=== PATIENT | male | born 1965 | race Caucasian/White ===

== ENCOUNTER 2018-05-08 22:46 | Emergency (ER) | payer BC, OTHER ==
[~2018-05-08] VITALS: Ht 165.1 cm; Wt 67.0 kg
[~2018-05-08 22:46] MED LIST: IBUP-1050 PO; MULT-506 PO
[2018-05-08 22:48] VITALS: TEMP 36.4; Ht 165.1 cm; Wt 67.0 kg
[2018-05-08] MEDS ORDERED: MoRPHine SULFATE 10 MG/ML CARP/VIAL IV STA (22:58)
[2018-05-08] MEDS ORDERED: LIDOCAINE 1% BUFFERED INJ 20 ML VIAL INFIL ONE (23:00)
[2018-05-08] MEDS ORDERED: AMPICILLIN/SULBACTAM SOD INJ 3,000 MG in SODIUM CHLORIDE 0.9% 100ML 100 ML IV ONE (23:00)
[2018-05-08] MEDS ORDERED: DIPHTHERIA/TETANUS/PERTUSSIS 0.5 ML SYR/VIAL IM. ONE (23:00)
--- NOTE | 2018-05-08 23:06 | EMERGENCY ROOM VISIT NOTE ---
History Report prepared by [place]: Yon Dumont Under the Supervision of: Dr. Juliano Randall M.D. First contact with patient: 22:53 Chief Complaint: BITE Stated Complaint: DOG BITE History of Present Illness The patient is a 52 year old male who presents to the Emergency Room with complaints of constant right hand pain that occurred an hour ago after he was bit by a Bernese dog. Patient states there was "blood all over the place". He denies taking any medication for the pain. He denies a past medical history or taking regular medications. Patient does not know when his last tetanus shot was but believes he has not had one in the last 5 years. Patient denies any other injuries. 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 Patient is present with his fiance. Source of History: patient Onset: An hour ago Position: hand (right) Timing: constant Modifying Factors (Relieving): other (None) Note: Denies any other injuries. Review of Systems See HPI for pertinent positives & negatives. A total of 10 systems reviewed and were otherwise negative. Past Medical & Surgical Medical Problems: (1) Colostomy Family History FHx: diverticulitis Social History Smoking Status: Never Smoker Marital Status: Occupation Status: employed Current/Historical Medications Scheduled Amoxicillin & Pot Clavulanate (Augmentin 875-125 mg), 875 MG PO BID Scheduled PRN Ibuprofen (Advil), 200-600 MG PO Q4H PRN for Pain Oxycodone Immediate Rel Tab (Roxicodone Ir), 1-2 TAB PO Q4H PRN for Severe Pain Allergies Coded Allergies: Prednisone (Verified Allergy, Unknown, MAKES SICK TO STOMACH, 05/08/18) Physical Exam Vital Signs Date Time Temp Pulse Resp B/P (MAP) Pulse Ox O2 Delivery O2 Flow Rate FiO2 05/09/18 00:55 85 18 103/72 100 05/08/18 22:48 36.4 93 16 141/85 97 Room Air Physical Exam GENERAL: Patient is severely upset, crying, won't make eye contact, and screams on light palpation of right hand. EYES: No scleral icterus, unremarkable pupils. ENT: Excessive rhinorrhea, mucous membranes moist, no nasal congestion. NECK: No masses appreciated, no meningismus, trachea is midline. RESPIRATORY: No dyspnea. Clear to auscultation and equal bilaterally. No wheeze , no rhonchi. CARDIOVASCULAR: Regular rate and rhythm. No murmurs, rubs, gallops appreciated. GASTROINTESTINAL: Abdomen soft, nontender, no peritonitis. Bowel sounds positive. No masses appreciated. BACK: No midline tenderness, no CVA tenderness EXTREMITIES: Normal motion all extremities, no cyanosis, no edema. RIGHT HAND: 2cm laceration over the dorsal aspect of 5th right metacarpal, horizontal laceration deep to subcutaneous tissue but lacerating artery or tendon, neurovascularly intact, small abrasion just distal to this, small skin flap about 1cm to hypothernar eminence. NEUROLOGIC: Alert and oriented, no acute motor or sensory deficits, no focal weakness, cranial nerves grossly intact. SKIN: No rash, no jaundice, no diaphoresis. Medical Decision & Procedures ER Provider Diagnostic Interpretation: Radiology results and stated below per my review and radiologist interpretation: THREE VIEW HAND X-RAY: X-ray shows soft tissue edema over proximal 5th metacarpal with small chip fracture at base of fifth metacarpal, no dislocation or foreign body appreciated. Medications Administered Medications (Trade) Dose Ordered Sig/Tammie Route Start Time Stop Time Status Last Admin Dose Admin Morphine Sulfate (MoRPHine SULFATE INJ) 10 mg NOW STAT IV 05/08/18 22:58 05/08/18 23:00 DC 05/08/18 23:11 10 MG Diphtheria/ Pertussis/Tetanus Vacc (Adacel Inj) 0.5 ml ONCE ONCE IM. 05/08/18 23:00 05/08/18 23:01 DC 05/08/18 23:12 0.5 ML Ampicillin Sodium/ Sulbactam Sodium 3000 mg/Sodium Chloride 108 ml @ 200 mls/hr ONE ONCE IV 05/08/18 23:00 05/08/18 23:32 DC 05/08/18 23:22 200 MLS/HR Morphine Sulfate (MoRPHine SULFATE INJ) 6 mg NOW STAT IV 05/09/18 00:00 05/09/18 00:01 DC 05/09/18 00:07 6 MG Procedure Location: Top of right hand Total length: 2cm Complexity: Simple Verbal consent was obtained after the risks and benefits were explained, including but not limited to bleeding, scarring, infection, pain, and bone/joint /nerve damage. At this time, the risks of the procedure are less than the risks of NOT performing the procedure. A time out was taken and the correct patient and site identified. The skin was prepped with betadine. The target area was anesthetized with 2 ml of 1% lidocaine without epinephrine. Copious irrigation was performed using about 1L of saline and Betadine. The skin was re-prepped with betadine and a sterile field set. The wound was explored for foreign bodies and none found. Examination revealed no injury to deep structures such as tendons, bone, or significant blood vessels. Debridement was not performed. The wound edges were approximated using 3, 4-0 simple interrupted nylon sutures. Hemostasis and excellent approximation was achieved. Antibacterial ointment and a sterile dressing applied. Detailed wound care instructions and signs and symptoms of infection reviewed with the him. No complications and the patient tolerated the procedure well. ED Course 2253: The patient was evaluated in room C4. A complete history and physical exam was performed. 6: Patient is currently sleeping. He appears much improved. 0025: Reevaluated the patient. I had prolonged discussion with the patient. He is comfortable with discharge and agreeable to calling orthopedics on Thursday. I talked with the patient at length about symptoms that require return. I also discussed with him Augmentin and he is agreeable to trying it. Discussed results and discharge instructions. He verbalized understanding and agreement. The patient is ready for discharge. Medical Decision 52 yr old male with dog bite to right hand (dominant hand) arrives in severe distress. Clearly he is very upset beyond just the dog bite which after longer discussion with him seems much of this is due to fact he is worried he won't be able to get several projects around house finished. Imaging hand with fracture base 5th metacarpal. Continued venous bleeding from dorsal wound despite pressure thus 3 sutures placed with hemostasis. Feeling better after morphine. Discussed at length the high risk of infection and fact he MUST see ortho in 36 hours as planned and reviewed symptoms requiring immediately RTED. Given IV Unasyn here and will do outpatient Augmentin. Reviewed risks/restrictions of Oxy IR. Patient going home with significant other who also denies further questions. [place] Drug Monitoring Program Search Results: no issues identified Medication Reconcilliation Current Medication List: was personally reviewed by me Blood Pressure Screening Patient's blood pressure: Elevated blood pressure Blood pressure disposition: Elevated BP felt to be situational Consults Time Called: 10 Consulting Physician: Dr. Ackerman - [facility] – [place] Returned Call: 12 Discussed the patient's case. Dr. Ackerman recommends closing any bleeding wounds and sending the patient to Dr. Mullins's office on Thursday. Impression Primary Impression: Dog bite of right hand Additional Impressions: Fracture of metacarpal of right hand, open [id number] (DTP) vaccination Scribe Attestation The scribe's documentation has been prepared under my direction and personally reviewed by me in its entirety. I confirm that the note above accurately reflects all work, treatment, procedures, and medical decision making performed by me. Departure Information Dispostion Home / Self-Care Prescriptions Oxycodone Immediate Rel Tab (ROXICODONE IR) 5 Mg Tab 1-2 TAB PO Q4H Y for Severe Pain, #20 TAB Prov: Juliano Randall M.D. 05/09/18 Amoxicillin & Pot Clavulanate (Augmentin 875-125 mg) 1 Tab Tab 875 MG PO BID for 10 Days, #20 TAB Prov: Juliano Randall M.D. 05/09/18 Referrals Venkata Morales M.D. (PCP) Froylan Mullins MD Patient Instructions My [facility] Additional Instructions Keep arm elevated to level of heart when possible. Return if worsening pain, fevers, rash spreading up arm, discoloration of fingers, nausea/vomiting, or other concerning symptoms. Use Tylenol and Motrin for discomfort, and Oxy IR for stronger pain. You have received a narcotic pain medication prescription. These medications may cause drowsiness and should not be used with other sedative medications. Do not drive, drink alcohol, perform dangerous activities, nor make important decisions after taking these medications. shelter use or inappropriate use may lead to addiction. Call Ortho on Thursday to schedule an appointment. Do not eat anything Thursday morning in case you need to have surgery. We are always here to help if you feel you need further evaluation or treatment. Problem Qualifiers
[2018-05-09] MEDS ORDERED: MoRPHine SULFATE 10 MG/ML CARP/VIAL IV STA
[2018-05-09] MEDS ORDERED: OXYC-737 PO ×2 (00:37→13:29)
[2018-05-09] MEDS ORDERED: AMOX875T PO (00:37)
[2018-05-09] MEDS ORDERED: OXYCODONE IR HOME PACK PO ONE (00:45)
[2018-05-09] MEDS ORDERED: AMOXICIL/CLAVU 875MG HOME PACK PO ONE (00:45)
[2018-05-09 00:55] VITALS: BP 103/72; PULSE 85; O2SAT 100
--- NOTE | 2018-05-09 08:58 | DIAGNOSTIC IMAGING REPORT ---
R HAND MIN 3 VIEWS ROUTINE CLINICAL HISTORY: Right hand dog bite. COMPARISON: None FINDINGS: Note is made of an acute minimally displaced fracture within the base of the right fifth metacarpal. Irregularity of the distal right radius and ulna is chronic. No additional acute fractures are identified. Soft tissue swelling adjacent to the fracture is noted. IMPRESSION: Acute minimally displaced fracture within the base of the right fifth metacarpal with adjacent soft tissue swelling. Small amount of soft tissue gas. No radiopaque foreign body. Electronically signed by: Xiang Steiner M.D. 05/09/2018 8:56 AM Dictated Date/Time: 05/09/2018 8:32 AM
== END 2018-05-09 00:50 | disposition home or self-care (01) ==
LOC: C.EDB 22:47 → C.EDC 05-09 00:50
DX: S61.451A Open bite of right hand, initial encounter (principal); S62.316A Displaced fracture of base of fifth metacarpal bone, right hand, initial encounter for closed fracture; Z23 Encounter for immunization; W54.0XXA Bitten by dog, initial encounter; Z88.8 Allergy status to other drugs, medicaments and biological substances

== ENCOUNTER → 2018-05-12 | Outpatient (CLI) | payer BC ==
[~2018-05-12] MED LIST changes: +AMOX875T PO; -MULT-506 PO; +OXYC-737 PO
--- NOTE | 2018-05-12 10:51 | DIAGNOSTIC IMAGING REPORT ---
VENOUS DOPPLER UPR EXT UNIL CLINICAL HISTORY: 53 years-old Male presenting with RIGHT HAND PAIN and edema. TECHNIQUE: Real-time grayscale and color and spectral Doppler ultrasound imaging of the veins of the right upper extremity was performed. Compression and augmentation were also utilized. COMPARISON: None. FINDINGS: RIGHT: Internal jugular vein: Patent. Subclavian vein: Patent. Axillary vein: Patent. Brachial vein: Patent. Basilic vein (superficial): Patent. Cephalic vein (superficial): Patent. Radial vein: Patent. Ulnar vein: Patent. Other: At the site of clinical interest in the right hand, no fluid collection noted. Subcutaneous edema. IMPRESSION: No evidence of deep venous thrombosis. Electronically signed by: Robert Chua M.D. 05/12/2018 10:50 AM Dictated Date/Time: 05/12/2018 10:49 AM
== END | disposition home or self-care (01) ==
LOC: C.ULTRBC 10:14
DX: L03.119 Cellulitis of unspecified part of limb (principal)

== ENCOUNTER 2019-04-15 15:46 | Inpatient (IN) ==
--- OUTSIDE RECORDS SUMMARY | 2019-04-15 15:50 | External Medical Summary | Continuity of Care Document ---
:1965 Author Name Michell Jordan, Provider Address Unavailable Unavailable , Care Team Providers Name Role Phone [place] Jordan, Wolf Quiroz Unavailable [email or web address] PCP, UNKNOWN Unavailable Unavailable Problems Diverticulitis Of Colon With Abscess (562.11) Allergies and Adverse Reactions Allergy history not documented Medications Medications not documented Procedures Procedures not documented Immunizations Immunizations not documented Plan of Treatment Planned Observations Planned Goals not documented Results No Known Results Results not documented
[2019-04-15] MEDS ORDERED: LORazepam 1 MG/2 ML VIAL IV STA (15:52)
[2019-04-15] MEDS ORDERED: LORazepam 2 MG/4 ML VIAL ONE (15:53)
[2019-04-15 16:02] LABS: Basophils # (auto) 0.03 K/uL (0-0.2); Basophils % (auto) 0.4 %; Eosinophils # (auto) 0.13 K/uL (0-0.5); Eosinophils % (auto) 1.9 %; Hematocrit (blood only) 40.7 % (42-52); Hemoglobin 13.9 g/dL (14.0-18.0); Immature Granulocytes # (auto) 0.01 K/uL (0.00-0.02); Immature Granulocytes % (auto) 0.1 %; Lymphocytes # (auto) 1.85 K/uL (1.2-3.4); Lymphocytes % (auto) 26.4 %; Mean Corpuscular Hgb Conc 34.2 g/dL (32-36); Mean Corpuscular Volume 91.3 fL (80-100); Monocytes # (auto) 0.44 K/uL (0.11-0.59); Monocytes % (auto) 6.3 %; Neutrophils # (auto) 4.56 K/uL (1.4-6.5); Neutrophils % (auto) 64.9 %; Platelet Count 207 K/uL (130-400); RDW Coefficient of Variation 13.8 % (11.5-14.5); RDW Standard Deviation 45.9 fL (36.4-46.3); Red Blood Count 4.46 M/uL (4.7-6.1); White Blood Count 7.02 K/uL (4.8-10.8)
[2019-04-15] MEDS ORDERED: ASPIRIN CHEW 324 MG PO STA (16:04)
[2019-04-15] MEDS ORDERED: LIDOCAINE IV BOLUS & DRIP IV STA (16:07)
[2019-04-15] MEDS ORDERED: LIDOCAINE/D5W DRIP 4MG/ML 2,000 MG/500 ML BAG IV STA (16:07)
--- NOTE | 2019-04-15 16:09 | XRay Report ---
XR chest 1V portable CLINICAL HISTORY: Atypical chest pain COMPARISON STUDY: 04/17/2011 FINDINGS: The lower central chest is obscured due to overlying electrode pads. The heart is normal in size given the AP technique. There is no failure. There is no focal pulmonary consolidation. There a re no pleural effusions. There is no pneumothorax.[ IMPRESSION: No active disease in the chest. Electronically signed by: Fransisco Villaseñor M.D. 04/15/2019 4:08 PM
[2019-04-15 16:12] LABS: INR 1.1 (0.9-1.1); Prothrombin Time 11.1 Seconds (9.0-12.0)
[2019-04-15 16:25] LABS: iSTAT Hemoglobin 13.3 g/dl (14.0-18.0); iSTAT Ionized Calcium 1.1 mmol/l (1.12-1.32)
[2019-04-15 16:33] LABS: Alanine Aminotransferase 85 U/L (12-78); Albumin Level 3.5 gm/dl (3.4-5.0); Aspartate Aminotransferase 60 U/L (15-37); Bilirubin Direct 0.2 mg/dl (0-0.2); Blood Urea Nitrogen 24 mg/dl (7-18); Calcium 8.2 mg/dl (8.5-10.1); Carbon Dioxide 23 mmol/L (21-32); Chloride 110 mmol/L (98-107); Creatinine Clr Calc Pharmacy 86.6 ml/min; Est GFR (African American) 112.6; Est GFR (Non-African American) 97.2; Glucose 90 mg/dl (70-99); Potassium 4.5 mmol/L (3.5-5.1); Sodium 139 mmol/L (136-145)
[2019-04-15 16:37] LABS: Base Excess VBG -3.5 mEq/L; Oxygen Saturation VBG 63.2 %; pH VBG 7.32 (7.36-7.41)
[2019-04-15 16:45] LABS: Albumin Globulin Ratio 0.9 (0.9-2); Alkaline Phosphatase 112 U/L (45-117); Bilirubin,Total 0.5 mg/dl (0.2-1); Globulin 3.8 gm/dl (2.5-4.0); NT Pro B Type Natriuretic Pept 3127 pg/ml (0-900); Phosphorus 3.6 mg/dl (2.5-4.9); Total Protein 7.3 gm/dl (6.4-8.2); Troponin I < 0.015 ng/ml (0-0.045)
[2019-04-15 16:54] LABS: Appearance Urine Clear (Clear); Bacteria Urine Automated Negative (Negative); Bilirubin Urine Negative (Negative); Color Urine Dark Yellow; Glucose Urine UA Negative (Negative); Ketones Urine Trace (Negative); Leukocyte Esterase Urine Negative (Negative); Nitrite Urine Negative (Negative); Protein Urine 2+ (Negative); Specific Gravity Urine 1.027 (1.000-1.030); Urobilinogen Urine Negative (Negative)
[2019-04-15 17:15] LABS: Amphetamines+Metham, Urine Pos (Neg); Barbiturates, Urine Neg (Neg); Benzodiazepine, Urine Neg (Neg); Cocaine, Urine Neg (Neg); MDMA (Ecstacy), Urine Pos (Neg); Methadone, Urine Neg (Neg); Opiate, Urine Neg (Neg); Phencyclidine, Urine Neg (Neg)
[2019-04-15] MEDS ORDERED: OPTIRAY 320 125ml IV PRN (17:17)
--- NOTE | 2019-04-15 17:20 | Emergency Department Note ---
Entered by Domingo Lynn acting as a scribe for History of Present Illness General Chief complaint: Tachycardia Stated complaint: PALPITATIONS Time Seen by Provider: 04/15/19 15:48 Source: patient and EMS History of Present Illness Provider complaint: Palpitations Onset (ago): hour(s) (Past 24 hours) Location: chest Radiation: non-radiation Pain Consistency: + constant Relieved By: + none Exacerbated By: + none Associated symptoms: + shortness of breath and + other (Positive lower extremity edema); no chest pain The patient is a 53 year old male who presents to the Emergency Room via EMS with complaints of constant palpitations that started yesterday while he was weed whacking. En route, the patient was showing V-tach and sinus tach on the monitor so he received 150mg of Lidocaine. Per EMS, the patient has had shortness of breath with exertion and lower extremity swelling for the past month. Today, the patient is short of breath with the palpitations, but he notes it is not as worse now than it was when his symptoms initially onset. He also denies any chest pain. Per EMS, the patient admitted to using meth 2 days ago, but denies using any today. The patient also denies using any alcohol or tobacco. The patient is a milk pickup truck driver, but notes he has not had a long trip since July 2018. The patient denies any cardiac history and notes he sees a doctor every 2 years. Home Medications Home Medications Medication Instructions Recorded Confirmed Type No Known Home Medications 04/15/19 04/15/19 History Allergies Allergy/AdvReac Type Severity Reaction Status Date / Time prednisone Allergy Unknown MAKES SICK Verified 04/15/19 16:40 TO STOMACH Past Med/Surg History Medical History Methamphetamine abuse (Chronic) Diverticulitis (Resolved) Surgical History S/P colon resection (Chronic) Family History Other Heart disease Social History Preferred Language: Tam[place] Communication Ability: Effective Beliefs That Will Affect Care: None Current Living Situation: Alone Feels Safe at Home: Yes Safety Concerns: Feels Safe At This Time Smoking Status: Former smoker Tobacco Type: smokeless tobacco Do You Dip or Chew Tobacco: Yes Tobacco Cessation Education Requested by Patient: No Hx Alcohol Use: No Hx Substance Use: No Review of Systems See HPI for pertinent positives & negatives. and A total of 10 systems reviewed and were otherwise negative Physical Exam Vital Signs Vital Signs - 24 hr 04/15/19 15:50 04/15/19 15:52 04/15/19 15:58 Temperature 37.2 C Temperature Source Oral Sepsis Recent Fever Within 48 Hours No Sepsis New/Unexplained Change in Mental Status No Sepsis Action Taken by Nursing No Action Required Pulse Rate 104 H 99 H Pulse Rate [Left Finger] 107 H Pulse Rhythm Regular Respiratory Rate 20 21 20 Respiratory Effort / Characteristics Non-Labored Spontaneous Respiratory Depth Normal Respiratory Pattern Regular Blood Pressure 160/123 H Blood Pressure [Left Arm] 160/123 H Blood Pressure Mean 135 Blood Pressure Mean [Left Arm] 135 Pulse Oximetry 100 99 99 Oxygen Delivery Method Nasal Cannula Room Air Room Air Oxygen Flow Rate 2 04/15/19 16:10 04/15/19 16:25 04/15/19 16:38 Temperature Temperature Source Sepsis Recent Fever Within 48 Hours Sepsis New/Unexplained Change in Mental Status Sepsis Action Taken by Nursing Pulse Rate Pulse Rate [Left Finger] 94 H 95 H 93 H Pulse Rhythm Respiratory Rate 20 24 20 Respiratory Effort / Characteristics Respiratory Depth Respiratory Pattern Blood Pressure Blood Pressure [Left Arm] 142/107 H 140/103 H 132/99 Blood Pressure Mean Blood Pressure Mean [Left Arm] 118 115 110 Pulse Oximetry 100 100 100 Oxygen Delivery Method Nasal Cannula Nasal Cannula Nasal Cannula Oxygen Flow Rate 2 2 04/15/19 17:01 04/15/19 17:22 04/15/19 17:43 Temperature Temperature Source Sepsis Recent Fever Within 48 Hours Sepsis New/Unexplained Change in Mental Status Sepsis Action Taken by Nursing Pulse Rate Pulse Rate [Left Finger] 85 85 83 Pulse Rhythm Respiratory Rate 20 16 16 Respiratory Effort / Characteristics Respiratory Depth Respiratory Pattern Blood Pressure Blood Pressure [Left Arm] 130/76 135/83 122/84 Blood Pressure Mean Blood Pressure Mean [Left Arm] 94 100 96 Pulse Oximetry 100 100 100 Oxygen Delivery Method Nasal Cannula Nasal Cannula Nasal Cannula Oxygen Flow Rate 2 2 2 GENERAL: Awake, alert, anxious and uncomfortable-appearing HENT: Normocephalic, atraumatic. Oropharynx with dry mucous membranes and otherwise unremarkable. EYES: Normal conjunctiva. Sclera non-icteric. NECK: Supple. No nuchal rigidity. FROM. No JVD. RESPIRATORY: Clear to auscultation. CARDIAC: Tachycardic rate, regular rhythm. Extremities warm and well perfused. Pulses equal. ABDOMEN: Soft, non-distended. No tenderness to palpation. No rebound or guarding. No masses. RECTAL: Deferred. MUSCULOSKELETAL: Chest examination reveals no tenderness. The back is symmetrical on inspection without obvious abnormality. There is no CVA tendernes s to palpation. No joint edema. LOWER EXTREMITIES: 2+ pitting edema bilaterally. Calves are equal size bilaterally and non-tender. No discoloration. NEURO: Normal sensorium. No sensory or motor deficits noted. SKIN: No rash or jaundice noted. Course 1548: Past medical records reviewed. The patient was evaluated in room B01, and a complete history and physical examination were performed. 1600: Dr. Jensen - [facility] Rod Buster was made aware that this patient will most likely be hospitalized in the ICU. 1614: I performed a bedside ultrasound. 1648: I spoke to Dr. Jas Chairez about the patient's case. He agrees with the plan however the EKGs did not cross over so he still needs to evaluate those. From what he already knows, he stated that it appears the patient just needs to be monitored closely for the V-Tach since subsequent EKGs do not show any concern for ischemia. 1656: I spoke to Radha Jacques PAC under Dr. Jasbir Chester about the patient's case. They will be accepting the patient for further evaluation. Consultations Consultation #1: I spoke to Dr. Jas Chairez about the patient's case. He agrees with the plan however the EKGs did not cross over so he still needs to evaluate those. From what he already knows, he stated that it appears the patient just needs to be monitored closely for the V-Tach since subsequent EKGs do not show any concern for ischemia. Time: 16:48 Consultation #2: I spoke to Radha Jacques PAC under Dr. Jasbir Chester about the patient's case. They will be accepting the patient for further evaluation. Time: 16:56 Administered Medications Enoxaparin Sodium (Lovenox) 40 mg SQ HS ARMAND Stop: 05/15/19 20:59 Last Admin: 04/15/19 21:09 Dose: 40 mg Documented by: [id number] Lidocaine HCl/Dextrose (Xylocaine/D5w Drip 4mg/Ml) 2,000 mg in 500 mls @ 30 mls/hr IV .[id number] ARMAND; Protocol Stop: 05/15/19 20:14 Last Admin: 04/15/19 20:18 Dose: 2 mg/min, 30 mls/hr Documented by: [id number] Cosigned by: [id number] Metoprolol Tartrate (Lopressor) 25 mg PO BID ARMAND Stop: 05/15/19 20:59 Last Admin: 04/15/19 21:09 Dose: 25 mg Documented by: [id number] Discontinued Medications Aspirin (Aspirin) 324 mg PO NOW STA Stop: 04/15/19 16:05 Last Admin: 04/15/19 16:20 Dose: 324 mg Documented by: [id number] Lorazepam (Ativan) 1 mg in 2 mls @ 2 mls/min IV NOW STA Stop: 04/15/19 15:53 Last Admin: 04/15/19 15:53 Dose: 2 mls/min Documented by: [id number] Lidocaine HCl/Dextrose (Xylocaine/D5w Drip 4mg/Ml) 2,000 mg in 500 mls @ 0 mls/hr IV .Q0M STA; Protocol Stop: 04/15/19 16:08 Last Infusion: 04/15/19 20:18 Dose: 0 mg/min, 0 mls/hr Documented by: [id number] Admin: 04/15/19 15:50 Dose: 1 mg/min, 15 mls/hr Documented by: [id number] Cosigned by: [id number] Magnesium Sulfate/Dextrose (Magnesium Sulfate / D5w) 1 gm in 100 mls @ 100 mls/hr IV ONE ONE Stop: 04/15/19 22:21 Last Admin: 04/15/19 22:19 Dose: 100 mls/hr Documented by: [id number] Ioversol (Optiray 320 125ml) 102 ml IV ONCE PRN PRN Reason: Interaction Checking Stop: 04/19/19 17:16 Last Admin: 04/15/19 17:17 Dose: 102 ml Documented by: [id number] Lidocaine HCl/Dextrose (Lidocaine Iv Bolus & Drip) 1 ea IV NOW STA Stop: 04/15/19 16:08 Last Admin: 04/15/19 16:16 Dose: Not Given Documented by: [id number] Lorazepam (Ativan) Confirm Administered Dose 2 mg .ROUTE .STK-MED ONE Stop: 04/15/19 15:54 Last Admin: 04/15/19 15:53 Dose: Not Given Documented by: [id number] Medical Decision Making Differential Diagnosis Differential: NSR, SVT, PACs, PVCs, Cardiac Dysrhythmia, Endocrine Dysfunction, Eletrolyte/Metabolic Abnormality, Pulmonary Embolism, Infectious, GI, amongst other pathologies entertained. Medical Records Attestation: I reviewed the patient's medical records. Home Medications Current Medication List: was personally reviewed by me Laboratory Data Attestation: I reviewed the patient's lab results. Result diagrams: 04/15/19 15:20 04/15/19 15:20 Lab Results 04/15/19 04/15/19 04/15/19 Range/Units 15:20 15:20 15:20 WBC 7.02 (4.8-10.8) K/uL RBC 4.46 L (4.7-6.1) M/uL Hgb 13.9 L (14.0-18.0) g/dL POC Hgb (14.0-18.0) g/dl Hct 40.7 L (42-52) % POC Hct (42-52) % MCV 91.3 (80-100) fL MCH 31.2 (25-34) pg MCHC 34.2 (32-36) g/dL RDW Std Deviation 45.9 (36.4-46.3) fL RDW Coeff of Mari 13.8 (11.5-14.5) % Plt Count 207 (130-400) K/uL MPV 12.0 H (7.4-10.4) fL Immature Gran % (Auto) 0.1 % Neut % (Auto) 64.9 % Lymph % (Auto) 26.4 % [place] % (Auto) 6.3 % Eos % (Auto) 1.9 % Baso % (Auto) 0.4 % Immature Gran # (Auto) 0.01 (0.00-0.02) K/uL Neut # (Auto) 4.56 (1.4-6.5) K/uL Lymph # (Auto) 1.85 (1.2-3.4) K/uL [place] # (Auto) 0.44 (0.11-0.59) K/uL Eos # (Auto) 0.13 (0-0.5) K/uL Baso # (Auto) 0.03 (0-0.2) K/uL PT 11.1 (9.0-12.0) Seconds INR 1.1 (0.9-1.1) VBG pH (7.36-7.41) VBG pCO2 (38-50) mmHg VBG pO2 mmHg VBG HCO3 mmol/L VBG O2 Saturation % VBG Base Excess mEq/L Barometric Pressure mm/Hg POC Sodium (135-144) mEq/L Sodium 139 (136-145) mmol/L POC Potassium (3.3-5.0) mEq/L Potassium 4.5 (3.5-5.1) mmol/L POC Chloride (101-112) mEq/L Chloride 110 H (98-107) mmol/L Carbon Dioxide 23 (21-32) mmol/L POC Total CO2 (24-31) mEq/l Anion Gap 6.0 (3-11) POC Anion Gap (16-25) mmol/L POC BUN (7-18) mg/dl BUN 24 H (7-18) mg/dl Creatinine 0.87 (0.6-1.4) mg/dl POC Creatinine (0.6-1.3) mg/dl Est Cr Clr Drug Dosing 86.6 ml/min Est GFR ( Amer) 112.6 Est GFR (Non-Af Amer) 97.2 BUN/Creatinine Ratio 28.0 H (10-20) Glucose 90 (70-99) mg/dl POC Glucose (other) (70-99) mg/dl Calcium 8.2 L (8.5-10.1) mg/dl POC Ioniz Calcium Anne (1.12-1.32) mmol/l Phosphorus 3.6 (2.5-4.9) mg/dl Magnesium 2.0 (1.8-2.4) mg/dl Total Bilirubin 0.5 (0.2-1) mg/dl Direct Bilirubin 0.2 (0-0.2) mg/dl AST 60 H (15-37) U/L ALT 85 H (12-78) U/L Alkaline Phosphatase 112 (45-117) U/L Troponin I < 0.015 (0-0.045) ng/ml NT-Pro-B Natriuret Pep 3127 H (0-900) pg/ml Total Protein 7.3 (6.4-8.2) gm/dl Albumin 3.5 (3.4-5.0) gm/dl Globulin 3.8 (2.5-4.0) gm/dl Albumin/Globulin Ratio 0.9 (0.9-2) Lipase 302 (73-393) U/L TSH 3.210 (0.300-4.500) uIu/ml Urine Color Urine Appearance (Clear) Urine pH (4.5-7.5) Ur Specific [place] (1.000-1.030) Urine Protein (Negative) Urine Glucose (UA) (Negative) Urine Ketones (Negative) Urine Blood (Negative) Urine Nitrite (Negative) Urine Bilirubin (Negative) Urine Urobilinogen (Negative) Ur Leukocyte Esterase (Negative) Urine WBC (Auto) (0-5) /hpf Urine RBC (Auto) (0-4) /hpf U Hyaline Cast (Auto) (0-5) /lpf U Epithel Cells (Auto) (0-5) /lpf Urine Bacteria (Auto) (Negative) Urine Opiates Screen (Neg) Ur Methadone, Qual (Neg) Urine Barbiturates (Neg) Ur Phencyclidine (PCP) (Neg) U Amphetamin/Meth Scrn (Neg) MDMA (Ecstasy) Screen (Neg) U Benzodiazepines Scrn (Neg) Ur Cocaine Metabolite (Neg) U Marijuana (THC) Screen (Neg) Ethyl Alcohol mg/dL (0-3) mg/dl 04/15/19 04/15/19 04/15/19 Range/Units 16:11 16:18 16:18 WBC (4.8-10.8) K/uL RBC (4.7-6.1) M/uL Hgb (14.0-18.0) g/dL POC Hgb 13.3 L (14.0-18.0) g/dl Hct (42-52) % POC Hct 39 L (42-52) % MCV (80-100) fL MCH (25-34) pg MCHC (32-36) g/dL RDW Std Deviation (36.4-46.3) fL RDW Coeff of Mari (11.5-14.5) % Plt Count (130-400) K/uL MPV (7.4-10.4) fL Immature Gran % (Auto) % Neut % (Auto) % Lymph % (Auto) % [place] % (Auto) % Eos % (Auto) % Baso % (Auto) % Immature Gran # (Auto) (0.00-0.02) K/uL Neut # (Auto) (1.4-6.5) K/uL Lymph # (Auto) (1.2-3.4) K/uL [place] # (Auto) (0.11-0.59) K/uL Eos # (Auto) (0-0.5) K/uL Baso # (Auto) (0-0.2) K/uL PT (9.0-12.0) Seconds INR (0.9-1.1) VBG pH 7.32 L (7.36-7.41) VBG pCO2 45 (38-50) mmHg VBG pO2 37 mmHg VBG HCO3 23 mmol/L VBG O2 Saturation 63.2 % VBG Base Excess -3.5 mEq/L Barometric Pressure 730.2 mm/Hg POC Sodium 142 (135-144) mEq/L Sodium (136-145) mmol/L POC Potassium 4.5 (3.3-5.0) mEq/L Potassium (3.5-5.1) mmol/L POC Chloride 106 (101-112) mEq/L Chloride (98-107) mmol/L Carbon Dioxide (21-32) mmol/L POC Total CO2 23 L (24-31) mEq/l Anion Gap (3-11) POC Anion Gap 18.0 (16-25) mmol/L POC BUN 26 H (7-18) mg/dl BUN (7-18) mg/dl Creatinine (0.6-1.4) mg/dl POC Creatinine 0.8 (0.6-1.3) mg/dl Est Cr Clr Drug Dosing ml/min Est GFR ( Amer) Est GFR (Non-Af Amer) BUN/Creatinine Ratio (10-20) Glucose (70-99) mg/dl POC Glucose (other) 90 (70-99) mg/dl Calcium (8.5-10.1) mg/dl POC Ioniz Calcium Anne 1.10 L (1.12-1.32) mmol/l Phosphorus (2.5-4.9) mg/dl Magnesium (1.8-2.4) mg/dl Total Bilirubin (0.2-1) mg/dl Direct Bilirubin (0-0.2) mg/dl AST (15-37) U/L ALT (12-78) U/L Alkaline Phosphatase (45-117) U/L Troponin I (0-0.045) ng/ml NT-Pro-B Natriuret Pep (0-900) pg/ml Total Protein (6.4-8.2) gm/dl Albumin (3.4-5.0) gm/dl Globulin (2.5-4.0) gm/dl Albumin/Globulin Ratio (0.9-2) Lipase (73-393) U/L TSH (0.300-4.500) uIu/ml Urine Color Urine Appearance (Clear) Urine pH (4.5-7.5) Ur Specific [place] (1.000-1.030) Urine Protein (Negative) Urine Glucose (UA) (Negative) Urine Ketones (Negative) Urine Blood (Negative) Urine Nitrite (Negative) Urine Bilirubin (Negative) Urine Urobilinogen (Negative) Ur Leukocyte Esterase (Negative) Urine WBC (Auto) (0-5) /hpf Urine RBC (Auto) (0-4) /hpf U Hyaline Cast (Auto) (0-5) /lpf U Epithel Cells (Auto) (0-5) /lpf Urine Bacteria (Auto) (Negative) Urine Opiates Screen (Neg) Ur Methadone, Qual (Neg) Urine Barbiturates (Neg) Ur Phencyclidine (PCP) (Neg) U Amphetamin/Meth Scrn (Neg) MDMA (Ecstasy) Screen (Neg) U Benzodiazepines Scrn (Neg) Ur Cocaine Metabolite (Neg) U Marijuana (THC) Screen (Neg) Ethyl Alcohol mg/dL < 3.0 (0-3) mg/dl 04/15/19 04/15/19 Range/Units 16:40 16:40 WBC (4.8-10.8) K/uL RBC (4.7-6.1) M/uL Hgb (14.0-18.0) g/dL POC Hgb (14.0-18.0) g/dl Hct (42-52) % POC Hct (42-52) % MCV (80-100) fL MCH (25-34) pg MCHC (32-36) g/dL RDW Std Deviation (36.4-46.3) fL RDW Coeff of Mari (11.5-14.5) % Plt Count (130-400) K/uL MPV (7.4-10.4) fL Immature Gran % (Auto) % Neut % (Auto) % Lymph % (Auto) % [place] % (Auto) % Eos % (Auto) % Baso % (Auto) % Immature Gran # (Auto) (0.00-0.02) K/uL Neut # (Auto) (1.4-6.5) K/uL Lymph # (Auto) (1.2-3.4) K/uL [place] # (Auto) (0.11-0.59) K/uL Eos # (Auto) (0-0.5) K/uL Baso # (Auto) (0-0.2) K/uL PT (9.0-12.0) Seconds INR (0.9-1.1) VBG pH (7.36-7.41) VBG pCO2 (38-50) mmHg VBG pO2 mmHg VBG HCO3 mmol/L VBG O2 Saturation % VBG Base Excess mEq/L Barometric Pressure mm/Hg POC Sodium (135-144) mEq/L Sodium (136-145) mmol/L POC Potassium (3.3-5.0) mEq/L Potassium (3.5-5.1) mmol/L POC Chloride (101-112) mEq/L Chloride (98-107) mmol/L Carbon Dioxide (21-32) mmol/L POC Total CO2 (24-31) mEq/l Anion Gap (3-11) POC Anion Gap (16-25) mmol/L POC BUN (7-18) mg/dl BUN (7-18) mg/dl Creatinine (0.6-1.4) mg/dl POC Creatinine (0.6-1.3) mg/dl Est Cr Clr Drug Dosing ml/min Est GFR ( Amer) Est GFR (Non-Af Amer) BUN/Creatinine Ratio (10-20) Glucose (70-99) mg/dl POC Glucose (other) (70-99) mg/dl Calcium (8.5-10.1) mg/dl POC Ioniz Calcium Anne (1.12-1.32) mmol/l Phosphorus (2.5-4.9) mg/dl Magnesium (1.8-2.4) mg/dl Total Bilirubin (0.2-1) mg/dl Direct Bilirubin (0-0.2) mg/dl AST (15-37) U/L ALT (12-78) U/L Alkaline Phosphatase (45-117) U/L Troponin I (0-0.045) ng/ml NT-Pro-B Natriuret Pep (0-900) pg/ml Total Protein (6.4-8.2) gm/dl Albumin (3.4-5.0) gm/dl Globulin (2.5-4.0) gm/dl Albumin/Globulin Ratio (0.9-2) Lipase (73-393) U/L TSH (0.300-4.500) uIu/ml Urine Color Dark Yellow Urine Appearance Clear (Clear) Urine pH 5.0 (4.5-7.5) Ur Specific [place] 1.027 (1.000-1.030) Urine Protein 2+ H (Negative) Urine Glucose (UA) Negative (Negative) Urine Ketones Trace H (Negative) Urine Blood Negative (Negative) Urine Nitrite Negative (Negative) Urine Bilirubin Negative (Negative) Urine Urobilinogen Negative (Negative) Ur Leukocyte Esterase Negative (Negative) Urine WBC (Auto) 1-5 (0-5) /hpf Urine RBC (Auto) 0-4 (0-4) /hpf U Hyaline Cast (Auto) 10-30 H (0-5) /lpf U Epithel Cells (Auto) 10-20 H (0-5) /lpf Urine Bacteria (Auto) Negative (Negative) Urine Opiates Screen Neg (Neg) Ur Methadone, Qual Neg (Neg) Urine Barbiturates Neg (Neg) Ur Phencyclidine (PCP) Neg (Neg) U Amphetamin/Meth Scrn Pos H (Neg) MDMA (Ecstasy) Screen Pos H (Neg) U Benzodiazepines Scrn Neg (Neg) Ur Cocaine Metabolite Neg (Neg) U Marijuana (THC) Screen Pos H (Neg) Ethyl Alcohol mg/dL (0-3) mg/dl Imaging Data Radiologist's Impression: Radiology results as stated below per my review and the radiologist's interpretation: XR chest 1V portable CLINICAL HISTORY: Atypical chest pain COMPARISON STUDY: 04/17/2011 FINDINGS: The lower central chest is obscured due to overlying electrode pads. The heart is normal in size given the AP technique. There is no failure. There is no focal pulmonary consolidation. There are no pleural effusions. There is no pneumothorax.[ IMPRESSION: No active disease in the chest. Electronically signed by: Fransisco Villaseñor M.D. 04/15/2019 4:[address] angio chest PE protocol CT DOSE: 253.04 mGy.cm HISTORY: Chest pain. Dyspnea. PE TECHNIQUE: Multiaxial CT images of the chest were performed following the intravenous administration of contrast to evaluate the pulmonary arteries. Maximal intensity projection images were also obtained. A dose lowering technique was utilized adhering to the principles of ALARA. COMPARISON STUDY: None. FINDINGS: There is a normal caliber thoracic aorta with no evidence for dissection. There is no evidence for pulmonary embolus. No pleural effusions. No pneumothorax. The liver and spleen are unremarkable. No mediastinal or hilar lymphadenopathy. The central airways are patent. The lungs demonstrate mild peribronchial thickening with a mild interstitial infiltrate left lung base. Appears be a trace amount of upper abdominal ascites. IMPRESSION: 1. No evidence for pulmonary embolus. 2. Poorly defined interstitial infiltrate left base with slight generalized peribronchial thickening. 3. Trace upper abdominal ascites. The above report was generated using voice recognition software. It may contain grammatical, syntax or spelling errors. Electronically signed by: Khanh Majano M.D. 04/15/2019 5:25 PM ECG Data Attestation: I personally reviewed and interpreted this ECG as follows: Indication: palpitations Rate (beats per minute): 104 Rhythm: sinus tachycardia Findings: + other (Normal axis), + nonspecific-ST abn (Leads V1, V2, V3, suspicious for Wellens pattern) and + ST depression (Marginally in V4 and V5) Additional Comments: REPEAT at 15:51 - Sinus tachycardia rate of 103, normal axis, no overt ischemia, T-wave inversion in aVL, V1 and V2. REPEAT at 16:00 - Normal sinus rhythm rate of 96, no overt ischemia, normal axis, T-wave inversion in aVL, V1 and V2. Blood Pressure Blood Pressure Findings: Normal blood pressure Blood Pressure Disposition: further management by hospitalist VALENTINO Narrative The patient is a pleasant 53-year-old gentleman who presents emergency department with nonsustained V. tach after developing palpitations this morning in the setting of using meth 2 days ago per hpi. EMS med command call received and fax of rhythm showed sinus tach with prolonged episodes of nonsustained V. tach. Given unclear history of drug abuse and concerns for QRS prolongation lidocaine was elected over amiodarone. EMS provided 150 mg load and subsequent 50 mg upon arrival with good effect and sinus tachycardia with infrequent short NSVT. Lidocaine drip initiated on arrival and the patient continued to improve and was hemodynamically stable. Initial EKG with ST changes in V1 V2 and V3 possibly consistent with Wellens syndrome in the setting of the patient's methamphetamine use. However repeat EKGs within 1.5 minutes and at 10 minutes demonstrated shallow T wave inversions in V1 V2 and aVL and otherwise no overt acute ischemia. Initial troponin negative in the setting of >6 hours of symptoms. Patient was given aspirin as precaution given his VT and transient ST changes. Case was discussed with Dr. Mark, [facility] who will evaluate the patient. Given the patient does not have active chest pain and subsequent EKGs did not show any ST elevations not likely to require emergent catheterization. Case was discussed with Sawyer Lamar PA-C, who will evaluate the patient for admission. CTA of chest subsequently negative for PE. Impression & Plan Non-sustained ventricular tachycardia, Methamphetamine abuse Critical Care Time Critical Care Time: Yes Total Critical Care Time: 45 I have personally spent greater than 45 minutes of critical care time in the direct management of this patient. This includes bedside care, interpretation o f diagnostic studies, and testing, discussion with consultants, patient, and family members, and other required patient management activities. This 45 minutes is in excess of all separately billable procedures. Discharge Plan Visit Data *Final* Discharge Date/Time: 04/15/19 19:03 Chief Complaint: Tachycardia Stated Complaint: PALPITATIONS ED Provider: Esdras Wright Discharge Problem: Non-sustained ventricular tachycardia, Methamphetamine abuse Patient Disposition: Admitted As Inpatient Discharge Instructions Interventions: ED Discharge Assessment Last Done: 04/15/19 19:03 The scribe's documentation has been prepared under my direction and personally reviewed by me in its entirety. I confirm that the note above accurately reflects all work, treatment, procedures, and medical decision making performed by me.
--- NOTE | 2019-04-15 17:26 | CT Scan Report ---
CT angio chest PE protocol CT DOSE: 253.04 mGy.cm HISTORY: Chest pain. Dyspnea. PE TECHNIQUE: Multiaxial CT images of the chest were performed following the intravenous administration of contrast to evaluate the pulmonary arteries. Maximal intensity projection images were also obtaine d. A dose lowering technique was utilized adhering to the principles of ALARA. COMPARISON STUDY: None. FINDINGS: There is a normal caliber thoracic aorta with no evidence for dissection. There is no evide nce for pulmonary embolus. No pleural effusions. No pneumothorax. The liver and spleen are unremarkab le. No mediastinal or hilar lymphadenopathy. The central airways are patent. The lungs demonstrate mi ld peribronchial thickening with a mild interstitial infiltrate left lung base. Appears be a trace am ount of upper abdominal ascites. IMPRESSION: 1. No evidence for pulmonary embolus. 2. Poorly defined interstitial infiltrate left base with slight generalized peribronchial thickening. 3. Trace upper abdominal ascites. The above report was generated using voice recognition software. It may contain grammatical, syntax or spelling errors. Electronically signed by: Khanh Majano M.D. 04/15/2019 5:25 PM
--- NOTE | 2019-04-15 18:03 | History & Physical Report ---
Date of Service April 15, 2019 Assessment & Plan (1) Non-sustained ventricular tachycardia: This is a 53-year-old male with history of diverticulosis presents with palpitations since yesterday and was found to have nonsustained V. tach. -EMS with rhythm strip showing nonsustained ventricular tachycardia in the setting of methamphetamine use -MDMA and marijuana also positive on urine tox screen -Was given 150 mg lidocaine bolus in route and started on drip, with improvement of heart rate. Is now asymptomatic -Will continue lidocaine drip with observation in the ICU -Most recent EKG with normal sinus rhythm with HR of 85 and QTc of 449 -Negative troponin. BLE edema and elevated BNP of 3127. 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 2D echo ordered -Cardio consulted and aware. Will evaluate (2) Methamphetamine abuse: Will need to be counseled on cessation when more alert DVT Ppx: SQ Lovenox Code status: FULL PCP: Andrew Dispo: Admitted to ICU. Plan to return home once medically stable. Patient seen in collaboration with Dr. Martell. Please see addendum. History of Present Illness Chief Complaint: Tachycardia Primary Care Provider: Venkata Morales MD This is a 53-year-old male with history of diverticulosis presents with palpitations since yesterday. Patient endorses using meth 2 days ago but denies any other drug use. Patient is a poor historian. States that he has had intermittent palpitations over the past month. Denies any chest pain or shortness of breath. Was brought in by EMS and was found to have nonsustained V. tach on the monitor in route and was given 150 mg of lidocaine. Daughter, at bedside, states that patient has been acting erratically for 8 months. She has noticed him to have a lower extremity swelling for the past few weeks. No known history of congestive heart failure or dysrhythmia. Patient denies any home medications and has not seen Dr. Trejo since 2013. Only known surgical issue is diverticulitis s/p partial bowel resection. ROS is limited due to patient's drowsy cognitive state but patient denies fever, chills, chest pain, shortness of breath or abdominal pain. Allergies Allergy/AdvReac Type Severity Reaction Status Date / Time prednisone Allergy Unknown MAKES SICK Verified 04/15/19 16:40 TO STOMACH Home Medications Home Medications Medication Instructions Recorded Confirmed Type No Known Home Medications 04/15/19 04/15/19 History Past Med/Surg History Medical History Methamphetamine abuse (Chronic) Diverticulitis (Resolved) Surgical History S/P colon resection (Chronic) Family History Other Heart disease Social History Preferred Language: Czech Communication Ability: Effective Beliefs That Will Affect Care: None Current Living Situation: Alone Feels Safe at Home: Yes Safety Concerns: Feels Safe At This Time Smoking Status: Former smoker Tobacco Type: smokeless tobacco Do You Dip or Chew Tobacco: Yes Tobacco Cessation Education Requested by Patient: No Hx Alcohol Use: No Hx Substance Use: No Review of Systems Review of Systems: Limited ROS due to cognitive status Physical Exam Physical Exam: General Appearance: WD/WN, no apparent distress, lethargic but arousable Head: normocephalic, atraumatic Eyes: normal inspection, PERRL, EOMI ENT: hearing grossly normal, pharynx normal (dry mucous membranes) Neck: supple, no JVD, no adenopathy Respiratory/Chest: lungs clear to auscultation. No wheezes, rales or rhonci. No respiratory distress or accessory muscle use Cardiovascular: regular rate, rhythm, no murmur, normal peripheral pulses, 2+ BLE edema Abdomen/GI: normal bowel sounds, soft, non-tender to palpation Extremities/Musculoskelatal: normal inspection, no calf tenderness, normal capillary refill, no pedal edema Neurologic/Psych: lethargic but able to answer some questions, follow commands. Limited judgement/insight Skin: normal color, warm/dry Results & Data Vital Signs (Past 12 Hours) Vital Signs Temp Pulse Pulse Resp BP BP Pulse Ox 04/15/19 17:43 83 16 122/84 100 04/15/19 17:22 85 16 135/83 100 04/15/19 17:01 85 20 130/76 100 04/15/19 16:38 93 H 20 132/99 100 04/15/19 16:25 95 H 24 140/103 H 100 04/15/19 16:10 94 H 20 142/107 H 100 04/15/19 15:58 99 H 20 99 04/15/19 15:52 37.2 C 104 H 21 160/123 H 99 04/15/19 15:50 107 H 20 160/123 H 100 Laboratory Results Short CBC 04/15/19 Range/Units 15:20 WBC 7.02 (4.8-10.8) K/uL Hgb 13.9 L (14.0-18.0) g/dL Hct 40.7 L (42-52) % Plt Count 207 (130-400) K/uL BMP 04/15/19 15:20 Sodium 139 Potassium 4.5 Chloride 110 H Carbon Dioxide 23 BUN 24 H Creatinine 0.87 Glucose 90 Calcium 8.2 L Cardiac Enzymes 04/15/19 Range/Units 15:20 Troponin I < 0.015 (0-0.045) ng/ml Liver Function 04/15/19 Range/Units 15:20 Total Bilirubin 0.5 (0.2-1) mg/dl Direct Bilirubin 0.2 (0-0.2) mg/dl AST 60 H (15-37) U/L ALT 85 H (12-78) U/L Alkaline Phosphatase 112 (45-117) U/L Albumin 3.5 (3.4-5.0) gm/dl Urine 04/15/19 Range/Units 16:40 Urine Color Dark Yellow Urine Appearance Clear (Clear) Urine pH 5.0 (4.5-7.5) Ur Specific [place] 1.027 (1.000-1.030) Urine Protein 2+ H (Negative) Urine Glucose (UA) Negative (Negative) Diagnostic Findings CXR: IMPRESSION: No active disease in the chest. Chest CTA: IMPRESSION: 1. No evidence for pulmonary embolus. 2. Poorly defined interstitial infiltrate left base with slight generalized peribronchial thickening. 3. Trace upper abdominal ascites. Supervising Physician Co-Signing Physician Notes Attending Addendum: care coordinated with DAMION Dawson please refer to her notes for full details, I agree with her notes patient seen and examined, records reviewed by myself as well on exam, patient seen drowsy, easily rousable states he is tired denies chest pain, dyspnea, palpitations, dizziness, headache no other symptoms VS noted and reviewed oriented x2, drowsy,, not in distress, speaks in sentences with no effort nor accessory muscle use normal rate, regular rhythm, no murmurs clear breath sounds bilaterally non distended, soft, nontender no bipedal edema, erythema, warmth no neuro deficits Hg 13.9 Crea 0.87 ASSESSMENT AND PLAN NON SUSTAINED V TACH from underlying Methadone use? r/o Cardiomyopathy echo pending Lidocaine drip started on Metoprolol PO Cardiology consulted METHADONE USE will need counselling other diagnoses and plan of care as per DAMION Dawson's notes Prasanth Martell MD
[2019-04-15] MEDS ORDERED: LIDOCAINE HCL/D5W 2000 MG/500 ML BAG IV ONE (18:18)
[2019-04-15] MEDS ORDERED: ICU PROTOCOL FOR HYPERGLYCEMIA PRN (19:27)
[2019-04-15] MEDS ORDERED: Nursing to Pharmacy Communication ONE (20:02)
--- NOTE | 2019-04-15 20:07 | Cardiology Consultation ---
Date of Consultation April 15, 2019 Assessment & Plan (1) Non-sustained ventricular tachycardia: (2) Methamphetamine abuse: Suspect secondary to drug abuse. Underlying cardiomyopathy not excluded. Increase IV lidocaine infusion to 2 mg/min. Initiate oral beta-valdemar therapy, metoprolol 25 mg twice daily. Patient to receive his first dose now. Lidocaine infusion may be reduced to 1 mg/min if ventricular bigeminy resolves after administration of beta-valdemar therapy. If patient experiences a recurrent episode of ventricular tachycardia this evening, he may be re-bolused with 50 mg of IV lidocaine. Resting 2D transthoracic echocardiogram will be performed in the a.m. Serum magnesium level ordered. Recommend maintaining a serum magnesium level greater than 2.0. Continue to monitor patient intensive care unit. Trend cardiac enzymes x3 sets. History of Present Illness Reason for Consultation: Nonsustained ventricular tachycardia Requesting Physician: Dr. Wright Attending Physician: Prasanth Martell MD History of Present Illness 53-year-old patient presents to the emergency department with tachycardia and palpitations. Nonsustained ventricular tachycardia recorded via EMS. Rhythm strip reviewed demonstrating wide complex nonsustained tachycardia with a right bundle branch pattern and a right axis. Patient treated with 150 mg of intravenous lidocaine and intravenous lidocaine infusion at 1 mg/min. Converted to sinus rhythm. Telemetry currently demonstrates sinus rhythm with premature ventricular complexes in a pattern of ventricular bigeminy. Patient seen and examined at the bedside in the intensive care unit. He is a poor historian. Admits to methamphetamine use. Urine drug screen is positive for methamphetamines, ecstasy, and marijuana. Fianc present at bedside. States she is unaware of any drug use. Patient currently denying any drug use history. Per discussion with the hospitalist, patient's daughter reports a long history of methamphetamine use. She believes the patient has been using meth for approximately 8 months. Patient reports worsening lower extremity edema for several days. Also reports dyspnea on exertion and fatigue. Denies any history of cardiomyopathy, congestive heart failure, rheumatic fever as a child, coronary disease, peripheral vascular disease. Allergies Allergy/AdvReac Type Severity Reaction Status Date / Time prednisone Allergy Unknown MAKES SICK Verified 04/15/19 16:40 TO STOMACH Home Medications Home Medications Medication Instructions Recorded Confirmed Type No Known Home Medications 04/15/19 04/15/19 History Patient History Medical History Methamphetamine abuse (Chronic) Diverticulitis (Resolved) Surgical History S/P colon resection (Chronic) Family History Other Heart disease Social History Preferred Language: Kiswahili Communication Ability: Effective Beliefs That Will Affect Care: None Current Living Situation: Alone Feels Safe at Home: Yes Safety Concerns: Feels Safe At This Time Smoking Status: Former smoker Tobacco Type: smokeless tobacco Do You Dip or Chew Tobacco: Yes Tobacco Cessation Education Requested by Patient: No Hx Alcohol Use: No Hx Substance Use: No Review of Systems Review of Systems: Unobtainable due to cognitive status Physical Exam Physical Exam: General: NAD, unkempt. Uncooperative. Arousable to verbal stimuli however somnolent. HEENT: Normocephalic. Poor dentition. Atraumatic. Conjunctiva pink, no scleral icterus. Neck: No carotid bruits, the carotid upstrokes are brisk. No JVD. No HJR Heart: Regular normal S-1 and S-2 no S-3 or S-4 gallop. No murmurs or rub appreciated. PMI is not displaced. No RV heave. Lungs: Clear bilateral without rales , rhonchi, or wheeze. Abdomen: Normal bowel sounds. Soft. Nontender. No masses or organomegaly. No abdominal bruits. Extremities: 1+ bilateral ankle and pretibial edema. Pulses: radial=2/4, Dorsalis pedis =2/4, posterior tibial=2/4. Neuro: Cranial nerves grossly intact. No focal motor deficit. Results & Data Vital Signs (Past 12 Hours) Vital Signs Temp Pulse Pulse Resp BP BP Pulse Ox 04/15/19 19:19 36.5 C 89 16 124/77 99 04/15/19 18:53 85 20 129/79 100 04/15/19 18:18 82 20 120/80 99 04/15/19 17:43 83 16 122/84 100 04/15/19 17:22 85 16 135/83 100 04/15/19 17:01 85 20 130/76 100 04/15/19 16:38 93 H 20 132/99 100 04/15/19 16:25 95 H 24 140/103 H 100 04/15/19 16:10 94 H 20 142/107 H 100 04/15/19 15:58 99 H 20 99 04/15/19 15:52 37.2 C 104 H 21 160/123 H 99 04/15/19 15:50 107 H 20 160/123 H 100 Laboratory Results Laboratory Results - last 24 hr 04/15/19 04/15/19 04/15/19 15:20 15:20 15:20 WBC 7.02 RBC 4.46 L Hgb 13.9 L POC Hgb Hct 40.7 L POC Hct MCV 91.3 MCH 31.2 MCHC 34.2 RDW Std Deviation 45.9 RDW Coeff of Mari 13.8 Plt Count 207 MPV 12.0 H Immature Gran % (Auto) 0.1 Neut % (Auto) 64.9 Lymph % (Auto) 26.4 [place] % (Auto) 6.3 Eos % (Auto) 1.9 Baso % (Auto) 0.4 Immature Gran # (Auto) 0.01 Neut # (Auto) 4.56 Lymph # (Auto) 1.85 [place] # (Auto) 0.44 Eos # (Auto) 0.13 Baso # (Auto) 0.03 PT 11.1 INR 1.1 VBG pH VBG pCO2 VBG pO2 VBG HCO3 VBG O2 Saturation VBG Base Excess Barometric Pressure POC Sodium Sodium 139 POC Potassium Potassium 4.5 POC Chloride Chloride 110 H Carbon Dioxide 23 POC Total CO2 Anion Gap 6.0 POC Anion Gap POC BUN BUN 24 H Creatinine 0.87 POC Creatinine Est Cr Clr Drug Dosing 86.6 Est GFR ( Amer) 112.6 Est GFR (Non-Af Amer) 97.2 BUN/Creatinine Ratio 28.0 H Glucose 90 POC Glucose (other) Calcium 8.2 L POC Ioniz Calcium Anne Phosphorus 3.6 Magnesium 2.0 Total Bilirubin 0.5 Direct Bilirubin 0.2 AST 60 H ALT 85 H Alkaline Phosphatase 112 Troponin I < 0.015 NT-Pro-B Natriuret Pep 3127 H Total Protein 7.3 Albumin 3.5 Globulin 3.8 Albumin/Globulin Ratio 0.9 Lipase 302 TSH 3.210 Urine Color Urine Appearance Urine pH Ur Specific [place] Urine Protein Urine Glucose (UA) Urine Ketones Urine Blood Urine Nitrite Urine Bilirubin Urine Urobilinogen Ur Leukocyte Esterase Urine WBC (Auto) Urine RBC (Auto) U Hyaline Cast (Auto) U Epithel Cells (Auto) Urine Bacteria (Auto) Nasal Screen MRSA (PCR) Urine Opiates Screen Ur Methadone, Qual Urine Barbiturates Ur Phencyclidine (PCP) U Amphetamines Confirm U Amphetamin/Meth Scrn U Methamphetamin Confrm MDMA (Ecstasy) Screen U MDMA (Ecstasy), Quant U Benzodiazepines Scrn Ur Cocaine Metabolite U Marijuana (THC) Screen U Marijuana THC Carboxy Ethyl Alcohol mg/dL 04/15/19 04/15/19 04/15/19 16:11 16:18 16:18 WBC RBC Hgb POC Hgb 13.3 L Hct POC Hct 39 L MCV MCH MCHC RDW Std Deviation RDW Coeff of Mari Plt Count MPV Immature Gran % (Auto) Neut % (Auto) Lymph % (Auto) [place] % (Auto) Eos % (Auto) Baso % (Auto) Immature Gran # (Auto) Neut # (Auto) Lymph # (Auto) [place] # (Auto) Eos # (Auto) Baso # (Auto) PT INR VBG pH 7.32 L VBG pCO2 45 VBG pO2 37 VBG HCO3 23 VBG O2 Saturation 63.2 VBG Base Excess -3.5 Barometric Pressure 730.2 POC Sodium 142 Sodium POC Potassium 4.5 Potassium POC Chloride 106 Chloride Carbon Dioxide POC Total CO2 23 L Anion Gap POC Anion Gap 18.0 POC BUN 26 H BUN Creatinine POC Creatinine 0.8 Est Cr Clr Drug Dosing Est GFR ( Amer) Est GFR (Non-Af Amer) BUN/Creatinine Ratio Glucose POC Glucose (other) 90 Calcium POC Ioniz Calcium [place] 1.10 L Phosphorus Magnesium Total Bilirubin Direct Bilirubin AST ALT Alkaline Phosphatase Troponin I NT-Pro-B Natriuret Pep Total Protein Albumin Globulin Albumin/Globulin Ratio Lipase TSH Urine Color Urine Appearance Urine pH Ur Specific [place] Urine Protein Urine Glucose (UA) Urine Ketones Urine Blood Urine Nitrite Urine Bilirubin Urine Urobilinogen Ur Leukocyte Esterase Urine WBC (Auto) Urine RBC (Auto) U Hyaline Cast (Auto) U Epithel Cells (Auto) Urine Bacteria (Auto) Nasal Screen MRSA (PCR) Urine Opiates Screen Ur Methadone, Qual Urine Barbiturates Ur Phencyclidine (PCP) U Amphetamines Confirm U Amphetamin/Meth Scrn U Methamphetamin Confrm MDMA (Ecstasy) Screen U MDMA (Ecstasy), Quant U Benzodiazepines Scrn Ur Cocaine Metabolite U Marijuana (THC) Screen U Marijuana THC Carboxy Ethyl Alcohol mg/dL < 3.0 04/15/19 04/15/19 04/15/19 16:40 16:40 16:40 WBC RBC Hgb POC Hgb Hct POC Hct MCV MCH MCHC RDW Std Deviation RDW Coeff of Mari Plt Count MPV Immature Gran % (Auto) Neut % (Auto) Lymph % (Auto) [place] % (Auto) Eos % (Auto) Baso % (Auto) Immature Gran # (Auto) Neut # (Auto) Lymph # (Auto) [place] # (Auto) Eos # (Auto) Baso # (Auto) PT INR VBG pH VBG pCO2 VBG pO2 VBG HCO3 VBG O2 Saturation VBG Base Excess Barometric Pressure POC Sodium Sodium POC Potassium Potassium POC Chloride Chloride Carbon Dioxide POC Total CO2 Anion Gap POC Anion Gap POC BUN BUN Creatinine POC Creatinine Est Cr Clr Drug Dosing Est GFR ( Amer) Est GFR (Non-Af Amer) BUN/Creatinine Ratio Glucose POC Glucose (other) Calcium POC Ioniz Calcium [place] Phosphorus Magnesium Total Bilirubin Direct Bilirubin AST ALT Alkaline Phosphatase Troponin I NT-Pro-B Natriuret Pep Total Protein Albumin Globulin Albumin/Globulin Ratio Lipase TSH Urine Color Dark Yellow Urine Appearance Clear Urine pH 5.0 Ur Specific [place] 1.027 Urine Protein 2+ H Urine Glucose (UA) Negative Urine Ketones Trace H Urine Blood Negative Urine Nitrite Negative Urine Bilirubin Negative Urine Urobilinogen Negative Ur Leukocyte Esterase Negative Urine WBC (Auto) 1-5 Urine RBC (Auto) 0-4 U Hyaline Cast (Auto) 10-30 H U Epithel Cells (Auto) 10-20 H Urine Bacteria (Auto) Negative Nasal Screen MRSA (PCR) Urine Opiates Screen Neg Ur Methadone, Qual Neg Urine Barbiturates Neg Ur Phencyclidine (PCP) Neg U Amphetamines Confirm Pending U Amphetamin/Meth Scrn Pos H U Methamphetamin Confrm Pending MDMA (Ecstasy) Screen Pos H U MDMA (Ecstasy), Quant U Benzodiazepines Scrn Neg Ur Cocaine Metabolite Neg U Marijuana (THC) Screen Pos H U Marijuana THC Carboxy Pending Ethyl Alcohol mg/dL 04/15/19 04/15/19 16:40 19:20 WBC RBC Hgb POC Hgb Hct POC Hct MCV MCH MCHC RDW Std Deviation RDW Coeff of [place] Plt Count MPV Immature Gran % (Auto) Neut % (Auto) Lymph % (Auto) [place] % (Auto) Eos % (Auto) Baso % (Auto) Immature Gran # (Auto) Neut # (Auto) Lymph # (Auto) [place] # (Auto) Eos # (Auto) Baso # (Auto) PT INR VBG pH VBG pCO2 VBG pO2 VBG HCO3 VBG O2 Saturation VBG Base Excess Barometric Pressure POC Sodium Sodium POC Potassium Potassium POC Chloride Chloride Carbon Dioxide POC Total CO2 Anion Gap POC Anion Gap POC BUN BUN Creatinine POC Creatinine Est Cr Clr Drug Dosing Est GFR ( Amer) Est GFR (Non-Af Amer) BUN/Creatinine Ratio Glucose POC Glucose (other) Calcium POC Ioniz Calcium [place] Phosphorus Magnesium Total Bilirubin Direct Bilirubin AST ALT Alkaline Phosphatase Troponin I NT-Pro-B Natriuret Pep Total Protein Albumin Globulin Albumin/Globulin Ratio Lipase TSH Urine Color Urine Appearance Urine pH Ur Specific [place] Urine Protein Urine Glucose (UA) Urine Ketones Urine Blood Urine Nitrite Urine Bilirubin Urine Urobilinogen Ur Leukocyte Esterase Urine WBC (Auto) Urine RBC (Auto) U Hyaline Cast (Auto) U Epithel Cells (Auto) Urine Bacteria (Auto) Nasal Screen MRSA (PCR) Pending Urine Opiates Screen Ur Methadone, Qual Urine Barbiturates Ur Phencyclidine (PCP) U Amphetamines Confirm U Amphetamin/Meth Scrn U Methamphetamin Confrm MDMA (Ecstasy) Screen U MDMA (Ecstasy), Quant Pending U Benzodiazepines Scrn Ur Cocaine Metabolite U Marijuana (THC) Screen U Marijuana THC Carboxy Ethyl Alcohol mg/dL
[2019-04-15] MEDS: LIDOCAINE/D5W DRIP 4MG/ML 2,000 MG/500 ML BAG IV SCH (20:18)
[2019-04-15] MEDS: METOPROLOL TARTRATE 25 MG TAB PO SCH (21:09)
[2019-04-15] MEDS: ENOXAPARIN INJ 40 MG/0.4 ML SYR SQ SCH (21:09)
[2019-04-15] MEDS ORDERED: MAGNESIUM SULFATE / D5W 1 GM/100 ML BAG IV ONE (21:22)
[2019-04-16 04:36] LABS: Hematocrit (blood only) 42.1 % (42-52); Mean Corpuscular Hgb Conc 33.3 g/dL (32-36); Mean Corpuscular Volume 92.1 fL (80-100); Mean Platelet Volume 11.4 fL (7.4-10.4); Platelet Count 187 K/uL (130-400); RDW Coefficient of Variation 13.7 % (11.5-14.5); RDW Standard Deviation 46.4 fL (36.4-46.3); Red Blood Count 4.57 M/uL (4.7-6.1); White Blood Count 5.97 K/uL (4.8-10.8)
[2019-04-16 04:58] LABS: BUN Creatinine Ratio 22.5 (10-20); Calcium 7.6 mg/dl (8.5-10.1); Creatinine Clr Calc Pharmacy 88.6 ml/min; Est GFR (African American) 113.7; Est GFR (Non-African American) 98.1; Potassium 4.6 mmol/L (3.5-5.1)
--- NOTE | 2019-04-16 06:39 | Ultrasound Report ---
US venous doppler LE BI CLINICAL HISTORY: BLE edema COMPARISON STUDY: No previous studies for comparison. FINDINGS: Real-time and color flow Doppler imaging were performed. Flow was seen within the femoral, popliteal and calf veins with no intraluminal thrombus demonstrated. The saphenous vein is patent. IMPRESSION: No evidence of lower extremity DVT. Electronically signed by: Fransisco Villaseñor M.D. 04/16/2019 6:38 AM
--- NOTE | 2019-04-16 07:05 | Critical Care Consultation ---
Date of Consultation April 16, 2019 Assessment & Plan (1) Non-sustained ventricular tachycardia: Reason Critically ill: Pt is a 53yo male with no significant PMHx who presented with nonsustained ventricular tachycardia in the setting of methamphetamine use. PLAN NEURO: -[facility] ICU NEGATIVE -will likely require substance abuse counseling during stay/upon discharge CARDS/VASCULAR -Pt presented in nonsustained v tach likely secondary to methamphetamine use -currently in sinus rhythm after Lidocaine and metoprolol Rx -CTA chest--NEG for PE -Doppler lower extremities--no evidence of DVT -trops negative x2 -EKG 04/16--normal sinus rhythm -Echo pending -appreciate cardiology recs RESP -originally had associated SOB with palps -currently no concerns, on room air saturating well -chest XR- with no acute cardiopulm process -will continue to monitor GI -currently NPO in case cardiac procedure needed RENAL//ELECTROLYTES -No kidney function concerns currently -Per cardiology, will maintain Mag >2 -will continue to monitor urine output, and replace electrolytes as needed ENDO -ICU protocol for hyperglycemia ID -no concerns currently -will continue to monitor for signs of infection Heme -no concerns DVT Prophylaxis: Lovenox subQ PIVs intact CODE STATUS: FULL Dispo: ICU for monitoring Supervising Physician Co-Signing Physician Notes Dr. Causey was resident physician during care of patient. I separately evaluated patient for velasquez portions of the history and the exam. I was present during the critical portion of medical decision making, and I discussed the case with the resident. I generally agree with the findings and plan. Patient's mental status is still flighty, I do believe he is under the influence of methamphetamine at this time. His ectopy has improved however not totally resolved. Discussed with cardiology: Jas, starting amiodarone and heart failure medications as patient has severely reduced ejection fraction. Patient remains critically ill due to nonsustained ventricular tachycardia induced by methamphetamine abuse with acute systolic heart failure. I have personally spent 45 minutes of critical care time in the direct management of this patient. This is a life/limb threatening event. This includes time spent evaluating patient, direct bedside care, chart review, placing orders, interpretation of diagnostic studies, discussion with consultants, patient, and/or family members regarding treatment decisions, as well as other required patient management activities. This time is exclusive of all separately billable procedures, and teaching time and separate from and in addition to any other critical care service time. History of Present Illness Attending Physician: Prsaanth Martell MD History of Present Illness Mr. Pollock is a 53yo male presenting with subjective palpitations of approximately 2 days duration after use of methamphetamine. In the ED, he was found to be in unsustained ventricular tachycardia. His toxicology screen was preliminarily positive for methamphetamines, ecstasy and marijuana. Pt states this AM that he is hungry. Currently denies chest pain, SOB, palps, N/V, abd pain, diarrhea or constipation. Allergies Allergy/AdvReac Type Severity Reaction Status Date / Time prednisone Allergy Unknown MAKES SICK Verified 04/15/19 16:40 TO STOMACH Home Medications Home Medications Medication Instructions Recorded Confirmed Type No Known Home Medications 04/15/19 04/15/19 History Patient History Medical History Methamphetamine abuse (Chronic) Diverticulitis (Resolved) Surgical History S/P colon resection (Chronic) Family History Other Heart disease Social History Preferred Language: Liberian Communication Ability: Effective Beliefs That Will Affect Care: None Current Living Situation: Alone Feels Safe at Home: Yes Safety Concerns: Feels Safe At This Time Smoking Status: Former smoker Tobacco Type: smokeless tobacco Do You Dip or Chew Tobacco: Yes Tobacco Cessation Education Requested by Patient: No Hx Alcohol Use: No Hx Substance Use: No Review of Systems Review of Systems: All systems reviewed & are unremarkable except as noted in HPI & below Physical Exam Physical Exam: General: Alert, oriented. HEENT: NC/AT Chest: Nontender to palpation. CV: RRR, Normal s1, s2. Resp: Breath sounds clear but decreased bilaterally, no increased effort of breathing. Abdomen: Soft, nontender. No guarding. Extremities: No edema. Results & Data Vital Signs (Past 12 Hours) Vital Signs Temp Pulse Pulse Resp BP BP Pulse Ox 04/16/19 06:00 66 15 120/92 97 04/16/19 05:00 63 15 110/86 95 04/16/19 04:00 36.5 C 62 9 L 117/80 97 04/16/19 03:00 64 15 105/75 96 04/16/19 02:00 63 16 106/81 96 04/16/19 01:00 64 7 L 105/80 94 04/16/19 00:00 36.7 C 66 16 104/80 94 04/15/19 23:00 73 15 125/95 96 04/15/19 22:00 81 15 132/98 96 04/15/19 21:00 86 17 131/84 96 04/15/19 20:04 80 16 130/86 95 04/15/19 19:27 44 L 04/15/19 19:19 36.5 C 90 89 23 124/77 124/77 97 Laboratory Results Laboratory Results - last 24 hr 04/15/19 04/15/19 04/15/19 15:20 15:20 15:20 WBC 7.02 RBC 4.46 L Hgb 13.9 L POC Hgb Hct 40.7 L POC Hct MCV 91.3 MCH 31.2 MCHC 34.2 RDW Std Deviation 45.9 RDW Coeff of Mari 13.8 Plt Count 207 MPV 12.0 H Immature Gran % (Auto) 0.1 Neut % (Auto) 64.9 Lymph % (Auto) 26.4 Dyer % (Auto) 6.3 Eos % (Auto) 1.9 Baso % (Auto) 0.4 Immature Gran # (Auto) 0.01 Neut # (Auto) 4.56 Lymph # (Auto) 1.85 Dyer # (Auto) 0.44 Eos # (Auto) 0.13 Baso # (Auto) 0.03 PT 11.1 INR 1.1 VBG pH VBG pCO2 VBG pO2 VBG HCO3 VBG O2 Saturation VBG Base Excess Barometric Pressure POC Sodium Sodium 139 POC Potassium Potassium 4.5 POC Chloride Chloride 110 H Carbon Dioxide 23 POC Total CO2 Anion Gap 6.0 POC Anion Gap POC BUN BUN 24 H Creatinine 0.87 POC Creatinine Est Cr Clr Drug Dosing 86.6 Est GFR ( Amer) 112.6 Est GFR (Non-Af Amer) 97.2 BUN/Creatinine Ratio 28.0 H Glucose 90 POC Glucose POC Glucose (other) Calcium 8.2 L POC Ioniz Calcium Anne Phosphorus 3.6 Magnesium 2.0 Total Bilirubin 0.5 Direct Bilirubin 0.2 AST 60 H ALT 85 H Alkaline Phosphatase 112 Troponin I < 0.015 NT-Pro-B Natriuret Pep 3127 H Total Protein 7.3 Albumin 3.5 Globulin 3.8 Albumin/Globulin Ratio 0.9 Lipase 302 TSH 3.210 Urine Color Urine Appearance Urine pH Ur Specific [place] Urine Protein Urine Glucose (UA) Urine Ketones Urine Blood Urine Nitrite Urine Bilirubin Urine Urobilinogen Ur Leukocyte Esterase Urine WBC (Auto) Urine RBC (Auto) U Hyaline Cast (Auto) U Epithel Cells (Auto) Urine Bacteria (Auto) Nasal Screen MRSA (PCR) Urine Opiates Screen Ur Methadone, Qual Urine Barbiturates Ur Phencyclidine (PCP) U Amphetamines Confirm U Amphetamin/Meth Scrn U Methamphetamin Confrm MDMA (Ecstasy) Screen U MDMA (Ecstasy), Quant U Benzodiazepines Scrn Ur Cocaine Metabolite U Marijuana (THC) Screen U Marijuana THC Carboxy Ethyl Alcohol mg/dL 04/15/19 04/15/19 04/15/19 16:11 16:18 16:18 WBC RBC Hgb POC Hgb 13.3 L Hct POC Hct 39 L MCV MCH MCHC RDW Std Deviation RDW Coeff of Mari Plt Count MPV Immature Gran % (Auto) Neut % (Auto) Lymph % (Auto) Dyer % (Auto) Eos % (Auto) Baso % (Auto) Immature Gran # (Auto) Neut # (Auto) Lymph # (Auto) Dyer # (Auto) Eos # (Auto) Baso # (Auto) PT INR VBG pH 7.32 L VBG pCO2 45 VBG pO2 37 VBG HCO3 23 VBG O2 Saturation 63.2 VBG Base Excess -3.5 Barometric Pressure 730.2 POC Sodium 142 Sodium POC Potassium 4.5 Potassium POC Chloride 106 Chloride Carbon Dioxide POC Total CO2 23 L Anion Gap POC Anion Gap 18.0 POC BUN 26 H BUN Creatinine POC Creatinine 0.8 Est Cr Clr Drug Dosing Est GFR ( Amer) Est GFR (Non-Af Amer) BUN/Creatinine Ratio Glucose POC Glucose POC Glucose (other) 90 Calcium POC Ioniz Calcium Anne 1.10 L Phosphorus Magnesium Total Bilirubin Direct Bilirubin AST ALT Alkaline Phosphatase Troponin I NT-Pro-B Natriuret Pep Total Protein Albumin Globulin Albumin/Globulin Ratio Lipase TSH Urine Color Urine Appearance Urine pH Ur Specific [place] Urine Protein Urine Glucose (UA) Urine Ketones Urine Blood Urine Nitrite Urine Bilirubin Urine Urobilinogen Ur Leukocyte Esterase Urine WBC (Auto) Urine RBC (Auto) U Hyaline Cast (Auto) U Epithel Cells (Auto) Urine Bacteria (Auto) Nasal Screen MRSA (PCR) Urine Opiates Screen Ur Methadone, Qual Urine Barbiturates Ur Phencyclidine (PCP) U Amphetamines Confirm U Amphetamin/Meth Scrn U Methamphetamin Confrm MDMA (Ecstasy) Screen U MDMA (Ecstasy), Quant U Benzodiazepines Scrn Ur Cocaine Metabolite U Marijuana (THC) Screen U Marijuana THC Carboxy Ethyl Alcohol mg/dL < 3.0 04/15/19 04/15/19 04/15/19 16:40 16:40 16:40 WBC RBC Hgb POC Hgb Hct POC Hct MCV MCH MCHC RDW Std Deviation RDW Coeff of Mari Plt Count MPV Immature Gran % (Auto) Neut % (Auto) Lymph % (Auto) Dyer % (Auto) Eos % (Auto) Baso % (Auto) Immature Gran # (Auto) Neut # (Auto) Lymph # (Auto) Dyer # (Auto) Eos # (Auto) Baso # (Auto) PT INR VBG pH VBG pCO2 VBG pO2 VBG HCO3 VBG O2 Saturation VBG Base Excess Barometric Pressure POC Sodium Sodium POC Potassium Potassium POC Chloride Chloride Carbon Dioxide POC Total CO2 Anion Gap POC Anion Gap POC BUN BUN Creatinine POC Creatinine Est Cr Clr Drug Dosing Est GFR ( Amer) Est GFR (Non-Af Amer) BUN/Creatinine Ratio Glucose POC Glucose POC Glucose (other) Calcium POC Ioniz Calcium Anne Phosphorus Magnesium Total Bilirubin Direct Bilirubin AST ALT Alkaline Phosphatase Troponin I NT-Pro-B Natriuret Pep Total Protein Albumin Globulin Albumin/Globulin Ratio Lipase TSH Urine Color Dark Yellow Urine Appearance Clear Urine pH 5.0 Ur Specific [place] 1.027 Urine Protein 2+ H Urine Glucose (UA) Negative Urine Ketones Trace H Urine Blood Negative Urine Nitrite Negative Urine Bilirubin Negative Urine Urobilinogen Negative Ur Leukocyte Esterase Negative Urine WBC (Auto) 1-5 Urine RBC (Auto) 0-4 U Hyaline Cast (Auto) 10-30 H U Epithel Cells (Auto) 10-20 H Urine Bacteria (Auto) Negative Nasal Screen MRSA (PCR) Urine Opiates Screen Neg Ur Methadone, Qual Neg Urine Barbiturates Neg Ur Phencyclidine (PCP) Neg U Amphetamines Confirm Pending U Amphetamin/Meth Scrn Pos H U Methamphetamin Confrm Pending MDMA (Ecstasy) Screen Pos H U MDMA (Ecstasy), Quant U Benzodiazepines Scrn Neg Ur Cocaine Metabolite Neg U Marijuana (THC) Screen Pos H U Marijuana THC Carboxy Pending Ethyl Alcohol mg/dL 04/15/19 04/15/19 04/15/19 16:40 19:20 20:06 WBC RBC Hgb POC Hgb Hct POC Hct MCV MCH MCHC RDW Std Deviation RDW Coeff of Mari Plt Count MPV Immature Gran % (Auto) Neut % (Auto) Lymph % (Auto) Dyer % (Auto) Eos % (Auto) Baso % (Auto) Immature Gran # (Auto) Neut # (Auto) Lymph # (Auto) Dyer # (Auto) Eos # (Auto) Baso # (Auto) PT INR VBG pH VBG pCO2 VBG pO2 VBG HCO3 VBG O2 Saturation VBG Base Excess Barometric Pressure POC Sodium Sodium POC Potassium Potassium POC Chloride Chloride Carbon Dioxide POC Total CO2 Anion Gap POC Anion Gap POC BUN BUN Creatinine POC Creatinine Est Cr Clr Drug Dosing Est GFR ( Amer) Est GFR (Non-Af Amer) BUN/Creatinine Ratio Glucose POC Glucose POC Glucose (other) Calcium POC Ioniz Calcium Anne Phosphorus Magnesium 2.0 Total Bilirubin Direct Bilirubin AST ALT Alkaline Phosphatase Troponin I NT-Pro-B Natriuret Pep Total Protein Albumin Globulin Albumin/Globulin Ratio Lipase TSH Urine Color Urine Appearance Urine pH Ur Specific [place] Urine Protein Urine Glucose (UA) Urine Ketones Urine Blood Urine Nitrite Urine Bilirubin Urine Urobilinogen Ur Leukocyte Esterase Urine WBC (Auto) Urine RBC (Auto) U Hyaline Cast (Auto) U Epithel Cells (Auto) Urine Bacteria (Auto) Nasal Screen MRSA (PCR) Negative Urine Opiates Screen Ur Methadone, Qual Urine Barbiturates Ur Phencyclidine (PCP) U Amphetamines Confirm U Amphetamin/Meth Scrn U Methamphetamin Confrm MDMA (Ecstasy) Screen U MDMA (Ecstasy), Quant Pending U Benzodiazepines Scrn Ur Cocaine Metabolite U Marijuana (THC) Screen U Marijuana THC Carboxy Ethyl Alcohol mg/dL 04/15/19 04/16/19 04/16/19 20:24 04:26 04:26 WBC 5.97 RBC 4.57 L Hgb 14.0 POC Hgb Hct 42.1 POC Hct MCV 92.1 MCH 30.6 MCHC 33.3 RDW Std Deviation 46.4 H RDW Coeff of Mari 13.7 Plt Count 187 MPV 11.4 H Immature Gran % (Auto) Neut % (Auto) Lymph % (Auto) Dyer % (Auto) Eos % (Auto) Baso % (Auto) Immature Gran # (Auto) Neut # (Auto) Lymph # (Auto) Dyer # (Auto) Eos # (Auto) Baso # (Auto) PT INR VBG pH VBG pCO2 VBG pO2 VBG HCO3 VBG O2 Saturation VBG Base Excess Barometric Pressure POC Sodium Sodium 138 POC Potassium Potassium 4.6 POC Chloride Chloride 110 H Carbon Dioxide 23 POC Total CO2 Anion Gap 5.0 POC Anion Gap POC BUN BUN 19 H Creatinine 0.85 POC Creatinine Est Cr Clr Drug Dosing 88.6 Est GFR ( Amer) 113.7 Est GFR (Non-Af Amer) 98.1 BUN/Creatinine Ratio 22.5 H Glucose 87 POC Glucose 80 POC Glucose (other) Calcium 7.6 L POC Ioniz Calcium Anne Phosphorus Magnesium Total Bilirubin Direct Bilirubin AST ALT Alkaline Phosphatase Troponin I NT-Pro-B Natriuret Pep Total Protein Albumin Globulin Albumin/Globulin Ratio Lipase TSH Urine Color Urine Appearance Urine pH Ur Specific [place] Urine Protein Urine Glucose (UA) Urine Ketones Urine Blood Urine Nitrite Urine Bilirubin Urine Urobilinogen Ur Leukocyte Esterase Urine WBC (Auto) Urine RBC (Auto) U Hyaline Cast (Auto) U Epithel Cells (Auto) Urine Bacteria (Auto) Nasal Screen MRSA (PCR) Urine Opiates Screen Ur Methadone, Qual Urine Barbiturates Ur Phencyclidine (PCP) U Amphetamines Confirm U Amphetamin/Meth Scrn U Methamphetamin Confrm MDMA (Ecstasy) Screen U MDMA (Ecstasy), Quant U Benzodiazepines Scrn Ur Cocaine Metabolite U Marijuana (THC) Screen U Marijuana THC Carboxy Ethyl Alcohol mg/dL 04/16/19 04:26 WBC RBC Hgb POC Hgb Hct POC Hct MCV MCH MCHC RDW Std Deviation RDW Coeff of Mari Plt Count MPV Immature Gran % (Auto) Neut % (Auto) Lymph % (Auto) [place] % (Auto) Eos % (Auto) Baso % (Auto) Immature Gran # (Auto) Neut # (Auto) Lymph # (Auto) Dyer # (Auto) Eos # (Auto) Baso # (Auto) PT INR VBG pH VBG pCO2 VBG pO2 VBG HCO3 VBG O2 Saturation VBG Base Excess Barometric Pressure POC Sodium Sodium POC Potassium Potassium POC Chloride Chloride Carbon Dioxide POC Total CO2 Anion Gap POC Anion Gap POC BUN BUN Creatinine POC Creatinine Est Cr Clr Drug Dosing Est GFR ( Amer) Est GFR (Non-Af Amer) BUN/Creatinine Ratio Glucose POC Glucose POC Glucose (other) Calcium POC Ioniz Calcium Anne Phosphorus Magnesium 2.1 Total Bilirubin Direct Bilirubin AST ALT Alkaline Phosphatase Troponin I < 0.015 NT-Pro-B Natriuret Pep Total Protein Albumin Globulin Albumin/Globulin Ratio Lipase TSH Urine Color Urine Appearance Urine pH Ur Specific [place] Urine Protein Urine Glucose (UA) Urine Ketones Urine Blood Urine Nitrite Urine Bilirubin Urine Urobilinogen Ur Leukocyte Esterase Urine WBC (Auto) Urine RBC (Auto) U Hyaline Cast (Auto) U Epithel Cells (Auto) Urine Bacteria (Auto) Nasal Screen MRSA (PCR) Urine Opiates Screen Ur Methadone, Qual Urine Barbiturates Ur Phencyclidine (PCP) U Amphetamines Confirm U Amphetamin/Meth Scrn U Methamphetamin Confrm MDMA (Ecstasy) Screen U MDMA (Ecstasy), Quant U Benzodiazepines Scrn Ur Cocaine Metabolite U Marijuana (THC) Screen U Marijuana THC Carboxy Ethyl Alcohol mg/dL Medications Administered Home Medications No Known Home Medications 04/15/19 [History Confirmed 04/15/19] Active Medications Enoxaparin Sodium (Lovenox) 40 mg SQ HS [facility] Stop: 05/15/19 20:59 Last Admin: 04/15/19 21:09 Dose: 40 mg Documented by: Lidocaine HCl/Dextrose (Xylocaine/D5w Drip 4mg/Ml) 2,000 mg in 500 mls @ 30 mls/hr IV .[id number] [facility]; Protocol Stop: 05/15/19 20:14 Last Infusion: 04/16/19 07:09 Dose: 2 mg/min, 30 mls/hr Documented by: Metoprolol Tartrate (Lopressor) 25 mg PO BID [facility] Stop: 05/15/19 20:59 Last Admin: 04/15/19 21:09 Dose: 25 mg Documented by: Miscellaneous (Icu Protocol For Hyperglycemia) 1 ea N/A PRN PRN; Protocol PRN Reason: Hyperglycemia Protocol Stop: 04/17/19 19:26 PG Care Time/CCT Total # of Minutes Spent Total Time Spent with Patient: Total time spent is greater than 50% in co ordination of care (as documented) at patient's floor/unit and/or counseling patient: Critical Care Time: Yes Total Critical Care Time: 45
[2019-04-16 07:44] LABS: Magnesium 2.1 mg/dl (1.8-2.4); Troponin I < 0.015 ng/ml (0-0.045)
[2019-04-16] MEDS: METOPROLOL TARTRATE 25 MG TAB PO SCH ×2 (08:10→21:16)
[2019-04-16] MEDS: LIDOCAINE/D5W DRIP 4MG/ML 2,000 MG/500 ML BAG IV SCH (09:24)
[2019-04-16] MEDS ORDERED: ALUMINUM/MAGNESIUM/SIMETH (MAALOX MAX) 30 ML UDC PO STA (09:25)
[2019-04-16] MEDS ORDERED: ALUMINUM/MAGNESIUM/SIMETH (MAALOX MAX) 30 ML UDC ONE (09:30)
[2019-04-16] MEDS ORDERED: AMIODARONE / D5W 150 MG/100 ML BAG IV STA (09:42)
[2019-04-16] MEDS ORDERED: AMIODARONE IV BOLUS / DRIP IV STA (09:42)
[2019-04-16] MEDS ORDERED: AMIODARONE / D5W 360 MG/200 ML BAG IV SCH (09:45)
[2019-04-16] MEDS ORDERED: FUROSEMIDE 20 MG in SYRINGE 0 ML IV ONE (09:45)
--- NOTE | 2019-04-16 10:05 | Cardiology Progress Note ---
Date of Service April 16, 2019 Assessment & Plan (1) Non-sustained ventricular tachycardia: (2) Methamphetamine abuse: (3) Dilated cardiomyopathy: (4) Acute systolic heart failure: Ventricular tachycardia resolved with intravenous lidocaine infusion overnight. Repeat ECG this morning demonstrates normal QT interval without ectopy. Preliminary review of 2D transthoracic echocardiogram demonstrates severe LV systolic dysfunction with global hypokinesis. Recommend transition lidocaine to amiodarone. IV amiodarone infusion ordered. Ultimately, patient will be transition to oral amiodarone prior to discharge. Continue metoprolol 25 mg twice daily. 20 mill grams of IV Lasix ordered for treatment of mild volume overload/lower extremity edema. Plan to add FLAQUITA inhibitor or ARB within the next 24 to 48 hours. Ischemic evaluation will be performed prior to discharge if patient agreeable. Continue observation in intensive care unit. Subjective Patient seen and examined at the bedside. More alert today. Denies shortness of breath, orthopnea, palpitations, or paroxysmal nocturnal dyspnea. Notes pedal edema present for more than 48 hours. Admits to methamphetamine use recently. States he is using methamphetamine approximately 2 days/week. Admits to tobacco abuse. Denies alcohol use. Lidocaine titrated to 2 mg/min last evening with resolution of PVCs. ECG this morning within normal limits. Preliminary review of resting 2D transthoracic echocardiogram demonstrates severe LV systolic dysfunction with severe global hypokinesis. Ejection fraction of 20 to 25%. Review of Systems Review of Systems: All systems reviewed & are unremarkable except as noted in HPI & below Physical Exam Physical Exam: General: NAD, unkempt. Alert and oriented to person, place, time. HEENT: Normocephalic. Poor dentition. Atraumatic. Conjunctiva pink, no scleral icterus. Neck: No carotid bruits, the carotid upstrokes are brisk. No JVD. No HJR Heart: Regular normal S-1 and S-2 no S-3 or S-4 gallop. No murmurs or rub appreciated. PMI is not displaced. No RV heave. Lungs: Clear bilateral without rales , rhonchi, or wheeze. Abdomen: Normal bowel sounds. Soft. Nontender. No masses or organomegaly. No abdominal bruits. Extremities: 1+ bilateral ankle and pretibial edema. Pulses: radial=2/4, Dorsalis pedis =2/4, posterior tibial=2/4. Neuro: Cranial nerves grossly intact. No focal motor deficit. Results & Data Vital Signs (Past 12 Hours) Vital Signs Temp Pulse Resp BP Pulse Ox 04/16/19 06:00 66 15 120/92 97 04/16/19 05:00 63 15 110/86 95 04/16/19 04:00 36.5 C 62 9 L 117/80 97 04/16/19 03:00 64 15 105/75 96 04/16/19 02:00 63 16 106/81 96 04/16/19 01:00 64 7 L 105/80 94 04/16/19 00:00 36.7 C 66 16 104/80 94 04/15/19 23:00 73 15 125/95 96 Laboratory Results Laboratory Results - last 24 hr 04/15/19 04/15/19 04/15/19 15:20 15:20 15:20 WBC 7.02 RBC 4.46 L Hgb 13.9 L POC Hgb Hct 40.7 L POC Hct MCV 91.3 MCH 31.2 MCHC 34.2 RDW Std Deviation 45.9 RDW Coeff of Mari 13.8 Plt Count 207 MPV 12.0 H Immature Gran % (Auto) 0.1 Neut % (Auto) 64.9 Lymph % (Auto) 26.4 Early % (Auto) 6.3 Eos % (Auto) 1.9 Baso % (Auto) 0.4 Immature Gran # (Auto) 0.01 Neut # (Auto) 4.56 Lymph # (Auto) 1.85 Early # (Auto) 0.44 Eos # (Auto) 0.13 Baso # (Auto) 0.03 PT 11.1 INR 1.1 VBG pH VBG pCO2 VBG pO2 VBG HCO3 VBG O2 Saturation VBG Base Excess Barometric Pressure POC Sodium Sodium 139 POC Potassium Potassium 4.5 POC Chloride Chloride 110 H Carbon Dioxide 23 POC Total CO2 Anion Gap 6.0 POC Anion Gap POC BUN BUN 24 H Creatinine 0.87 POC Creatinine Est Cr Clr Drug Dosing 86.6 Est GFR ( Amer) 112.6 Est GFR (Non-Af Amer) 97.2 BUN/Creatinine Ratio 28.0 H Glucose 90 POC Glucose POC Glucose (other) Calcium 8.2 L POC Ioniz Calcium Anne Phosphorus 3.6 Magnesium 2.0 Total Bilirubin 0.5 Direct Bilirubin 0.2 AST 60 H ALT 85 H Alkaline Phosphatase 112 Troponin I < 0.015 NT-Pro-B Natriuret Pep 3127 H Total Protein 7.3 Albumin 3.5 Globulin 3.8 Albumin/Globulin Ratio 0.9 Lipase 302 TSH 3.210 Urine Color Urine Appearance Urine pH Ur Specific [place] Urine Protein Urine Glucose (UA) Urine Ketones Urine Blood Urine Nitrite Urine Bilirubin Urine Urobilinogen Ur Leukocyte Esterase Urine WBC (Auto) Urine RBC (Auto) U Hyaline Cast (Auto) U Epithel Cells (Auto) Urine Bacteria (Auto) Nasal Screen MRSA (PCR) Urine Opiates Screen Ur Methadone, Qual Urine Barbiturates Ur Phencyclidine (PCP) U Amphetamines Confirm U Amphetamin/Meth Scrn U Methamphetamin Confrm MDMA (Ecstasy) Screen U MDMA (Ecstasy), Quant U Benzodiazepines Scrn Ur Cocaine Metabolite U Marijuana (THC) Screen U Marijuana THC Carboxy Ethyl Alcohol mg/dL 04/15/19 04/15/19 04/15/19 16:11 16:18 16:18 WBC RBC Hgb POC Hgb 13.3 L Hct POC Hct 39 L MCV MCH MCHC RDW Std Deviation RDW Coeff of Mari Plt Count MPV Immature Gran % (Auto) Neut % (Auto) Lymph % (Auto) Early % (Auto) Eos % (Auto) Baso % (Auto) Immature Gran # (Auto) Neut # (Auto) Lymph # (Auto) Early # (Auto) Eos # (Auto) Baso # (Auto) PT INR VBG pH 7.32 L VBG pCO2 45 VBG pO2 37 VBG HCO3 23 VBG O2 Saturation 63.2 VBG Base Excess -3.5 Barometric Pressure 730.2 POC Sodium 142 Sodium POC Potassium 4.5 Potassium POC Chloride 106 Chloride Carbon Dioxide POC Total CO2 23 L Anion Gap POC Anion Gap 18.0 POC BUN 26 H BUN Creatinine POC Creatinine 0.8 Est Cr Clr Drug Dosing Est GFR ( Amer) Est GFR (Non-Af Amer) BUN/Creatinine Ratio Glucose POC Glucose POC Glucose (other) 90 Calcium POC Ioniz Calcium Anne 1.10 L Phosphorus Magnesium Total Bilirubin Direct Bilirubin AST ALT Alkaline Phosphatase Troponin I NT-Pro-B Natriuret Pep Total Protein Albumin Globulin Albumin/Globulin Ratio Lipase TSH Urine Color Urine Appearance Urine pH Ur Specific [place] Urine Protein Urine Glucose (UA) Urine Ketones Urine Blood Urine Nitrite Urine Bilirubin Urine Urobilinogen Ur Leukocyte Esterase Urine WBC (Auto) Urine RBC (Auto) U Hyaline Cast (Auto) U Epithel Cells (Auto) Urine Bacteria (Auto) Nasal Screen MRSA (PCR) Urine Opiates Screen Ur Methadone, Qual Urine Barbiturates Ur Phencyclidine (PCP) U Amphetamines Confirm U Amphetamin/Meth Scrn U Methamphetamin Confrm MDMA (Ecstasy) Screen U MDMA (Ecstasy), Quant U Benzodiazepines Scrn Ur Cocaine Metabolite U Marijuana (THC) Screen U Marijuana THC Carboxy Ethyl Alcohol mg/dL < 3.0 04/15/19 04/15/19 04/15/19 16:40 16:40 16:40 WBC RBC Hgb POC Hgb Hct POC Hct MCV MCH MCHC RDW Std Deviation RDW Coeff of Mari Plt Count MPV Immature Gran % (Auto) Neut % (Auto) Lymph % (Auto) Early % (Auto) Eos % (Auto) Baso % (Auto) Immature Gran # (Auto) Neut # (Auto) Lymph # (Auto) Early # (Auto) Eos # (Auto) Baso # (Auto) PT INR VBG pH VBG pCO2 VBG pO2 VBG HCO3 VBG O2 Saturation VBG Base Excess Barometric Pressure POC Sodium Sodium POC Potassium Potassium POC Chloride Chloride Carbon Dioxide POC Total CO2 Anion Gap POC Anion Gap POC BUN BUN Creatinine POC Creatinine Est Cr Clr Drug Dosing Est GFR ( Amer) Est GFR (Non-Af Amer) BUN/Creatinine Ratio Glucose POC Glucose POC Glucose (other) Calcium POC Ioniz Calcium Anne Phosphorus Magnesium Total Bilirubin Direct Bilirubin AST ALT Alkaline Phosphatase Troponin I NT-Pro-B Natriuret Pep Total Protein Albumin Globulin Albumin/Globulin Ratio Lipase TSH Urine Color Dark Yellow Urine Appearance Clear Urine pH 5.0 Ur Specific [place] 1.027 Urine Protein 2+ H Urine Glucose (UA) Negative Urine Ketones Trace H Urine Blood Negative Urine Nitrite Negative Urine Bilirubin Negative Urine Urobilinogen Negative Ur Leukocyte Esterase Negative Urine WBC (Auto) 1-5 Urine RBC (Auto) 0-4 U Hyaline Cast (Auto) 10-30 H U Epithel Cells (Auto) 10-20 H Urine Bacteria (Auto) Negative Nasal Screen MRSA (PCR) Urine Opiates Screen Neg Ur Methadone, Qual Neg Urine Barbiturates Neg Ur Phencyclidine (PCP) Neg U Amphetamines Confirm Pending U Amphetamin/Meth Scrn Pos H U Methamphetamin Confrm Pending MDMA (Ecstasy) Screen Pos H U MDMA (Ecstasy), Quant U Benzodiazepines Scrn Neg Ur Cocaine Metabolite Neg U Marijuana (THC) Screen Pos H U Marijuana THC Carboxy Pending Ethyl Alcohol mg/dL 04/15/19 04/15/19 04/15/19 16:40 19:20 20:06 WBC RBC Hgb POC Hgb Hct POC Hct MCV MCH MCHC RDW Std Deviation RDW Coeff of Mari Plt Count MPV Immature Gran % (Auto) Neut % (Auto) Lymph % (Auto) Early % (Auto) Eos % (Auto) Baso % (Auto) Immature Gran # (Auto) Neut # (Auto) Lymph # (Auto) Early # (Auto) Eos # (Auto) Baso # (Auto) PT INR VBG pH VBG pCO2 VBG pO2 VBG HCO3 VBG O2 Saturation VBG Base Excess Barometric Pressure POC Sodium Sodium POC Potassium Potassium POC Chloride Chloride Carbon Dioxide POC Total CO2 Anion Gap POC Anion Gap POC BUN BUN Creatinine POC Creatinine Est Cr Clr Drug Dosing Est GFR ( Amer) Est GFR (Non-Af Amer) BUN/Creatinine Ratio Glucose POC Glucose POC Glucose (other) Calcium POC Ioniz Calcium Anne Phosphorus Magnesium 2.0 Total Bilirubin Direct Bilirubin AST ALT Alkaline Phosphatase Troponin I NT-Pro-B Natriuret Pep Total Protein Albumin Globulin Albumin/Globulin Ratio Lipase TSH Urine Color Urine Appearance Urine pH Ur Specific [place] Urine Protein Urine Glucose (UA) Urine Ketones Urine Blood Urine Nitrite Urine Bilirubin Urine Urobilinogen Ur Leukocyte Esterase Urine WBC (Auto) Urine RBC (Auto) U Hyaline Cast (Auto) U Epithel Cells (Auto) Urine Bacteria (Auto) Nasal Screen MRSA (PCR) Negative Urine Opiates Screen Ur Methadone, Qual Urine Barbiturates Ur Phencyclidine (PCP) U Amphetamines Confirm U Amphetamin/Meth Scrn U Methamphetamin Confrm MDMA (Ecstasy) Screen U MDMA (Ecstasy), Quant Pending U Benzodiazepines Scrn Ur Cocaine Metabolite U Marijuana (THC) Screen U Marijuana THC Carboxy Ethyl Alcohol mg/dL 04/15/19 04/16/19 04/16/19 20:24 04:26 04:26 WBC 5.97 RBC 4.57 L Hgb 14.0 POC Hgb Hct 42.1 POC Hct MCV 92.1 MCH 30.6 MCHC 33.3 RDW Std Deviation 46.4 H RDW Coeff of Mari 13.7 Plt Count 187 MPV 11.4 H Immature Gran % (Auto) Neut % (Auto) Lymph % (Auto) Early % (Auto) Eos % (Auto) Baso % (Auto) Immature Gran # (Auto) Neut # (Auto) Lymph # (Auto) Early # (Auto) Eos # (Auto) Baso # (Auto) PT INR VBG pH VBG pCO2 VBG pO2 VBG HCO3 VBG O2 Saturation VBG Base Excess Barometric Pressure POC Sodium Sodium 138 POC Potassium Potassium 4.6 POC Chloride Chloride 110 H Carbon Dioxide 23 POC Total CO2 Anion Gap 5.0 POC Anion Gap POC BUN BUN 19 H Creatinine 0.85 POC Creatinine Est Cr Clr Drug Dosing 88.6 Est GFR ( Amer) 113.7 Est GFR (Non-Af Amer) 98.1 BUN/Creatinine Ratio 22.5 H Glucose 87 POC Glucose 80 POC Glucose (other) Calcium 7.6 L POC Ioniz Calcium Anne Phosphorus Magnesium Total Bilirubin Direct Bilirubin AST ALT Alkaline Phosphatase Troponin I NT-Pro-B Natriuret Pep Total Protein Albumin Globulin Albumin/Globulin Ratio Lipase TSH Urine Color Urine Appearance Urine pH Ur Specific [place] Urine Protein Urine Glucose (UA) Urine Ketones Urine Blood Urine Nitrite Urine Bilirubin Urine Urobilinogen Ur Leukocyte Esterase Urine WBC (Auto) Urine RBC (Auto) U Hyaline Cast (Auto) U Epithel Cells (Auto) Urine Bacteria (Auto) Nasal Screen MRSA (PCR) Urine Opiates Screen Ur Methadone, Qual Urine Barbiturates Ur Phencyclidine (PCP) U Amphetamines Confirm U Amphetamin/Meth Scrn U Methamphetamin Confrm MDMA (Ecstasy) Screen U MDMA (Ecstasy), Quant U Benzodiazepines Scrn Ur Cocaine Metabolite U Marijuana (THC) Screen U Marijuana THC Carboxy Ethyl Alcohol mg/dL 04/16/19 04:26 WBC RBC Hgb POC Hgb Hct POC Hct MCV MCH MCHC RDW Std Deviation RDW Coeff of Mari Plt Count MPV Immature Gran % (Auto) Neut % (Auto) Lymph % (Auto) Early % (Auto) Eos % (Auto) Baso % (Auto) Immature Gran # (Auto) Neut # (Auto) Lymph # (Auto) Early # (Auto) Eos # (Auto) Baso # (Auto) PT INR VBG pH VBG pCO2 VBG pO2 VBG HCO3 VBG O2 Saturation VBG Base Excess Barometric Pressure POC Sodium Sodium POC Potassium Potassium POC Chloride Chloride Carbon Dioxide POC Total CO2 Anion Gap POC Anion Gap POC BUN BUN Creatinine POC Creatinine Est Cr Clr Drug Dosing Est GFR ( Amer) Est GFR (Non-Af Amer) BUN/Creatinine Ratio Glucose POC Glucose POC Glucose (other) Calcium POC Ioniz Calcium Anne Phosphorus Magnesium 2.1 Total Bilirubin Direct Bilirubin AST ALT Alkaline Phosphatase Troponin I < 0.015 NT-Pro-B Natriuret Pep Total Protein Albumin Globulin Albumin/Globulin Ratio Lipase TSH Urine Color Urine Appearance Urine pH Ur Specific [place] Urine Protein Urine Glucose (UA) Urine Ketones Urine Blood Urine Nitrite Urine Bilirubin Urine Urobilinogen Ur Leukocyte Esterase Urine WBC (Auto) Urine RBC (Auto) U Hyaline Cast (Auto) U Epithel Cells (Auto) Urine Bacteria (Auto) Nasal Screen MRSA (PCR) Urine Opiates Screen Ur Methadone, Qual Urine Barbiturates Ur Phencyclidine (PCP) U Amphetamines Confirm U Amphetamin/Meth Scrn U Methamphetamin Confrm MDMA (Ecstasy) Screen U MDMA (Ecstasy), Quant U Benzodiazepines Scrn Ur Cocaine Metabolite U Marijuana (THC) Screen U Marijuana THC Carboxy Ethyl Alcohol mg/dL
[2019-04-16] MEDS ORDERED: IBUPROFEN 600 MG TAB PO PRN (10:38)
--- NOTE | 2019-04-16 10:52 | Hospitalist Progress Note ---
Date of Service April 16, 2019 Assessment & Plan (1) Non-sustained ventricular tachycardia: This is a 53-year-old male with history of diverticulosis presents with palpitations since yesterday and was found to have nonsustained V. tach. -EMS with rhythm strip showing nonsustained ventricular tachycardia in the setting of methamphetamine use -MDMA and marijuana also positive on urine tox screen - off Lidocaine drip transitioned to Amiodarone IV started on Metoprolol PO - possible ischemic eval monitor (2) Methadone use: counselling DVT Ppx: SQ Lovenox Code status: FULL PCP: Pilgram Disp: pending Subjective ff up v tach seen resting in bed, uncomfortable due to left lateral chest pain sharp, worse with movement no sob, dizziness, palpitations, nausea/vomiting no other symptoms Review of Systems Review of Systems: All systems reviewed & are unremarkable except as noted in HPI & below Physical Exam Physical Exam: General- oriented x 2, not in distress, speaks in sentences with no effort or accessory muscle use Eyes- anicteric Neck- no JVD Lungs- clear breath sounds bilaterally, no rales/wheezes Heart- normal rate, regular rhythm; no murmurs Abdomen- normal bowel sounds, nondistended, soft, nontender Extremities- mild lower leg edema, no calf tenderness Neuro- alert, oriented x 3; no gross focal neurologic deficits Skin- warm & dry Results & Data Vital Signs (Past 12 Hours) Vital Signs Temp Pulse Resp BP Pulse Ox 04/16/19 06:00 66 15 120/92 97 04/16/19 05:00 63 15 110/86 95 04/16/19 04:00 36.5 C 62 9 L 117/80 97 04/16/19 03:00 64 15 105/75 96 04/16/19 02:00 63 16 106/81 96 04/16/19 01:00 64 7 L 105/80 94 04/16/19 00:00 36.7 C 66 16 104/80 94 04/15/19 23:00 73 15 125/95 96
[2019-04-16] MEDS: ACETAMINOPHEN 500 MG TAB PO PRN ×2 (10:55→20:06)
[2019-04-16] MEDS: AMIODARONE / D5W 360 MG/200 ML BAG IV SCH ×2 (16:30→22:35)
[2019-04-16] MEDS ORDERED: Nursing to Pharmacy Communication ONE (16:42)
[2019-04-16] MEDS: ENOXAPARIN INJ 40 MG/0.4 ML SYR SQ SCH (20:07)
[2019-04-17] MEDS: AMIODARONE / D5W 360 MG/200 ML BAG IV SCH (04:44)
[2019-04-17 05:10] LABS: Hematocrit (blood only) 44.2 % (42-52); Hemoglobin 15.1 g/dL (14.0-18.0); Mean Corpuscular Hgb Conc 34.2 g/dL (32-36); Platelet Count 202 K/uL (130-400); RDW Coefficient of Variation 13.8 % (11.5-14.5); RDW Standard Deviation 45.2 fL (36.4-46.3); Red Blood Count 4.91 M/uL (4.7-6.1); White Blood Count 8.24 K/uL (4.8-10.8)
[2019-04-17 05:27] LABS: BUN Creatinine Ratio 25.5 (10-20); Calcium 7.9 mg/dl (8.5-10.1); Creatinine Clr Calc Pharmacy 66.7 ml/min; Est GFR (African American) 84.3; Est GFR (Non-African American) 72.8; Potassium 4.3 mmol/L (3.5-5.1)
--- NOTE | 2019-04-17 05:47 | Critical Care Progress Note ---
Date of Service April 17, 2019 Assessment & Plan (1) Non-sustained ventricular tachycardia: Reason Critically ill: Pt is a 53yo male with no significant PMHx who presented with nonsustained ventricular tachycardia in the setting of methamphetamine use. PLAN NEURO: -[facility] ICU POSITIVE -Tox screen positive for methamphetamine, ecstasy and marijuana -will likely require substance abuse counseling during stay/upon discharge CARDS/VASCULAR -Pt presented in nonsustained v tach likely secondary to methamphetamine use -currently in sinus rhythm after Lidocaine, amiodarone and metoprolol Rx with infrequent PVCs -Amiodarone IV completed 04/17 and metoprolol dose halved to 12.5mg 04/17 -will put on oral amiodarone 200mg BID -CTA chest--NEG for PE -Doppler lower extremities--no evidence of DVT -trops negative x3 -EKG 04/16--normal sinus rhythm -Echo with low EF of 20-25% -appreciate cardiology recs RESP -originally had associated SOB with palps -currently no concerns, on room air saturating well -chest XR- with no acute cardiopulm process -will continue to monitor GI -currently NPO in case cardiac procedure needed RENAL//ELECTROLYTES -No kidney function concerns currently -Per cardiology, will maintain Mag >2 -will continue to monitor urine output, and replace electrolytes as needed ENDO -ICU protocol for hyperglycemia ID -no concerns currently -will continue to monitor for signs of infection Heme -no concerns DVT Prophylaxis: Lovenox subQ PIVs intact CODE STATUS: FULL Dispo: ICU for monitoring Supervising Physician Co-Signing Physician Notes Dr. Causey was resident physician during care of patient. I separately evaluated patient for velasquez portions of the history and the exam. I was present during the critical portion of medical decision making, and I discussed the case with the resident. I generally agree with the findings and plan. Decreasing metoprolol dosing to 12.5 is patient is somewhat bradycardic this morning. Ectopy has essentially resolved while on the amiodarone. Will disco ntinue IV amiodarone and try oral 200 mg twice daily. Meets criteria for LifeVest. Still requires further inpatient evaluation however he appears to be stable for downgrade out of ICU today to telemetry status. Subjective Mr. Pollock was fast asleep this AM. No acute events overnight except some bradycardia after administration of his metoprolol. Review of Systems Respiratory: no dyspnea Cardiovascular: no chest pain and no palpitations Gastrointestinal: no abdominal pain Physical Exam Physical Exam: General: Alert, oriented. HEENT: NC/AT Chest: Nontender to palpation. CV: RRR, Normal s1, s2. Resp: Breath sounds clear but decreased bilaterally, no increased effort of breathing. Abdomen: Soft, nontender. No guarding. Extremities: No edema. Results & Data Vital Signs (Past 12 Hours) Vital Signs Temp Pulse Resp BP Pulse Ox 04/17/19 00:00 36.6 C 50 L 20 108/81 99 04/16/19 23:00 52 L 17 115/85 98 04/16/19 22:00 52 L 20 105/77 98 04/16/19 21:00 52 L 19 117/81 100 04/16/19 20:13 36.5 C 53 L 22 112/80 04/16/19 19:01 54 L 14 106/85 99 Laboratory Results Laboratory Results - last 24 hr 04/16/19 04/17/19 04/17/19 15:11 04:44 04:44 WBC 8.24 RBC 4.91 Hgb 15.1 Hct 44.2 MCV 90.0 MCH 30.8 MCHC 34.2 RDW Std Deviation 45.2 RDW Coeff of Mari 13.8 Plt Count 202 MPV 12.0 H Sodium 134 L Potassium 4.3 Chloride 103 Carbon Dioxide 25 Anion Gap 6.0 BUN 29 H D Creatinine 1.13 Est Cr Clr Drug Dosing 66.7 Est GFR ( Amer) 84.3 Est GFR (Non-Af Amer) 72.8 BUN/Creatinine Ratio 25.5 H Glucose 112 H Calcium 7.9 L Troponin I 0.028 Medications Administered Home Medications No Known Home Medications 04/15/19 [History Confirmed 04/15/19] Active Medications Acetaminophen (Tylenol) 1,000 mg PO Q6H PRN PRN Reason: Mild Pain Stop: 05/16/19 10:35 Last Admin: 04/16/19 20:06 Dose: 1,000 mg Documented by: Enoxaparin Sodium (Lovenox) 40 mg SQ HS ARMAND Stop: 05/15/19 20:59 Last Admin: 04/16/19 20:07 Dose: 40 mg Documented by: Metoprolol Tartrate (Lopressor) 12.5 mg PO BID ARMAND Stop: 05/17/19 08:59 Miscellaneous (Icu Protocol For Hyperglycemia) 1 ea N/A PRN PRN; Protocol PRN Reason: Hyperglycemia Protocol Stop: 04/17/19 19:26 Ranitidine HCl (Zantac) 150 mg PO BID [facility] Stop: 05/16/19 09:29 Last Admin: 04/17/19 07:50 Dose: 150 mg Documented by:
[2019-04-17] MEDS: AMIODARONE 200 MG TAB PO SCH ×2 (09:51→21:34)
[2019-04-17] MEDS: METOPROLOL TARTRATE 25 MG TAB PO SCH ×2 (09:51→21:34)
--- NOTE | 2019-04-17 11:49 | Cardiology Progress Note ---
Date of Service April 17, 2019 Assessment & Plan (1) Non-sustained ventricular tachycardia: (2) Methamphetamine abuse: (3) Dilated cardiomyopathy: (4) Acute systolic heart failure: No recurrent ventricular tachycardia overnight. Sinus bradycardia noted on telemetry. IV amiodarone infusion discontinued. Metoprolol reduced to 12.5 mg twice daily. Recommend addition of low-dose lisinopril, 2.5 mg daily as tolerated. Plan ischemic evaluation with cardiac catheterization prior to disc harge. Patient agreeable. Discussed indications for ICD implantation. Electrophysiology consultation will be obtained prior to discharge. Further recommendations pending clinical course, response to medical therapies, and results of cardiac catheterization. Patient will require social work supervisor evaluation due to financial hardship. Subjective Patient seen and examined the bedside. More alert today. Denies chest pain or shortness of breath. Voices concern regarding lack of insurance. No recurrent dysrhythmias on telemetry. Reports palpitations for several months. Denies syncope or near syncope. No orthopnea or PND. Denies personal history of coronary disease, congestive heart failure, or rheumatic fever as a child. Reports history of coronary disease involving his father at age 53. Denies any alcohol use. Admits to occasional methamphetamine abuse. Review of Systems Review of Systems: All systems reviewed & are unremarkable except as noted in HPI & below Physical Exam Physical Exam: General: NAD, AAO x3, well nourished. HEENT: Normocephalic. Atraumatic. Conjunctiva pink, no scleral icterus. Neck: No carotid bruits, the carotid upstrokes are brisk. No JVD. No HJR Heart: Regular normal S-1 and S-2 no S-3 or S-4 gallop. No murmurs or rub appreciated. PMI is not displaced. No RV heave. Lungs: Clear bilateral without rales , rhonchi, or wheeze. Abdomen: Normal bowel sounds. Soft. Nontender. No masses or organomegaly. No abdominal bruits. Extremities: No clubbing or cyanosis. 1+ bilateral pedal and ankle edema. Pulses: radial=2/4, Dorsalis pedis =2/4, posterior tibial=2/4. Neuro: Cranial nerves grossly intact. No focal motor deficit. Results & Data Vital Signs (Past 12 Hours) Vital Signs Temp Pulse Resp BP Pulse Ox 04/17/19 06:08 46 L 14 99/81 L 99 04/17/19 05:00 47 L 12 116/82 96 04/17/19 04:00 36.7 C 48 L 7 L 99/78 L 97 04/17/19 03:00 49 L 9 L 110/83 98 04/17/19 02:00 47 L 12 106/82 95 04/17/19 01:00 50 L 18 87/62 L 95 04/17/19 00:00 36.6 C 50 L 20 108/81 99 Laboratory Results Laboratory Results - last 24 hr 04/16/19 04/17/19 04/17/19 15:11 04:44 04:44 WBC 8.24 RBC 4.91 Hgb 15.1 Hct 44.2 MCV 90.0 MCH 30.8 MCHC 34.2 RDW Std Deviation 45.2 RDW Coeff of Mari 13.8 Plt Count 202 MPV 12.0 H Sodium 134 L Potassium 4.3 Chloride 103 Carbon Dioxide 25 Anion Gap 6.0 BUN 29 H D Creatinine 1.13 Est Cr Clr Drug Dosing 66.7 Est GFR ( Amer) 84.3 Est GFR (Non-Af Amer) 72.8 BUN/Creatinine Ratio 25.5 H Glucose 112 H Calcium 7.9 L Troponin I 0.028
[2019-04-17] MEDS: LISINOPRIL 2.5 MG TAB PO SCH (13:59)
--- NOTE | 2019-04-17 17:05 | Hospitalist Progress Note ---
Date of Service April 17, 2019 Assessment & Plan (1) Non-sustained ventricular tachycardia: This is a 53-year-old male with history of diverticulosis presents with palpitations since yesterday and was found to have nonsustained V. tach. -EMS with rhythm strip showing nonsustained ventricular tachycardia in the setting of methamphetamine use -MDMA and marijuana also positive on urine tox screen - off Lidocaine drip transitioned to Amiodarone PO also on Metoprolol and Lisinopril - planning for cardiac cath, EP eval for AICD (2) Methadone use: counselling done DVT Ppx: SQ Lovenox Code status: FULL PCP: Pilgram Disp: pending Subjective ff up for v tach, cardiomyopathy seen resting in bed, comfortable not in distress denies chest pain, dyspnea, dizziness, palpitations no other symptoms Review of Systems Review of Systems: All systems reviewed & are unremarkable except as noted in HPI & below Physical Exam Physical Exam: General- oriented x 3, not in distress, speaks in sentences with no effort or accessory muscle use Eyes- anicteric Neck- no JVD Lungs- clear BS BL Heart- normal rate, regular rhythm; no murmurs Abdomen- normal bowel sounds, nondistended, soft, nontender Extremities-mild lower leg edema, no calf tenderness Neuro- alert, oriented x 3; no gross focal neurologic deficits Skin- warm & dry Results & Data Vital Signs (Past 12 Hours) Vital Signs Pulse Resp BP Pulse Ox 04/17/19 06:08 46 L 14 99/81 L 99 Laboratory Results Laboratory Results - last 24 hr 04/17/19 04/17/19 04:44 04:44 WBC 8.24 RBC 4.91 Hgb 15.1 Hct 44.2 MCV 90.0 MCH 30.8 MCHC 34.2 RDW Std Deviation 45.2 RDW Coeff of Mari 13.8 Plt Count 202 MPV 12.0 H Sodium 134 L Potassium 4.3 Chloride 103 Carbon Dioxide 25 Anion Gap 6.0 BUN 29 H D Creatinine 1.13 Est Cr Clr Drug Dosing 66.7 Est GFR ( Amer) 84.3 Est GFR (Non-Af Amer) 72.8 BUN/Creatinine Ratio 25.5 H Glucose 112 H Calcium 7.9 L
[2019-04-17] MEDS: ENOXAPARIN INJ 40 MG/0.4 ML SYR SQ SCH (21:40)
[2019-04-18 05:50] LABS: Hematocrit (blood only) 41.4 % (42-52); Mean Corpuscular Hgb Conc 33.8 g/dL (32-36); Mean Corpuscular Volume 90.6 fL (80-100); Platelet Count 198 K/uL (130-400); RDW Coefficient of Variation 13.7 % (11.5-14.5); RDW Standard Deviation 45.3 fL (36.4-46.3); Red Blood Count 4.57 M/uL (4.7-6.1)
[2019-04-18 06:21] LABS: Creatinine Clr Calc Pharmacy 77.6 ml/min; Est GFR (African American) 101.4; Est GFR (Non-African American) 87.5
[2019-04-18] MEDS: AMIODARONE 200 MG TAB PO SCH ×2 (08:30→20:10)
[2019-04-18] MEDS ORDERED: NiCARDipine HCL INJ 2.5 MG/ML 10 ML AMP ONE (10:16)
[2019-04-18] MEDS ORDERED: HEPARIN (PORCINE) 1000 UNIT/ML 10 ML (CATH LAB USE ONLY) ONE (10:16)
[2019-04-18] MEDS ORDERED: fentaNYL citrate 100 MCG/2 ML VIAL ONE (10:16)
[2019-04-18] MEDS ORDERED: MIDAZOLAM HCL 1 MG/ML 2ML VIAL ONE (10:16)
[2019-04-18] MEDS ORDERED: NITROGLYCERIN/D5W 100MCG/ML 20ML SYR ONE (10:17)
[2019-04-18] MEDS ORDERED: ADENOSINE IV SOLN 3 MG/ML 20 ML VIAL IV ONE ×2 (11:17→11:37)
--- NOTE | 2019-04-18 11:26 | Pre Anesthesia Assessment ---
Date of Service April 18, 2019 Pre Sedation Assessment Vital Signs Temp Pulse Pulse Resp BP BP Pulse Ox 04/19/19 11:01 36.4 C L 50 L 18 118/79 95 04/19/19 07:16 36.7 C 54 L 18 126/70 94 04/19/19 03:11 36.9 C 54 L 17 121/76 96 04/19/19 00:00 55 L 04/18/19 23:53 36.7 C 56 L 18 126/80 98 04/18/19 19:57 36.7 C 59 L 18 116/74 98 04/18/19 15:38 36.7 C 60 18 120/82 97 04/18/19 14:02 36.5 C 58 L 20 126/73 97 04/18/19 13:45 64 20 124/74 94 Cardiovascular RRR, no murmur, no edema Respiratory normal respiratory effort, lungs clear to auscultation Pre-Sedation Airway Assessment Smoking Status: Former smoker Hx Sleep Apnea: No Short, Thick Neck: No Thyromental Distance: > or= 3.5 Finger Breadths Oral Cavity: + WNL Mallampati Class: IV ASA: ASA3 NPO Status Date of Last Intake of Fluids: 04/18/19 Time of Last Intake of Fluids: 08:00 Last Oral Intake of Fluids Comment: sip with meds Date of Last Intake of Solid Food: 04/17/19 Procedure Planning Contraindications for Sedation: none Current Medications Reviewed: Yes Notes The planned sedation has been discussed with the patient. Informed Consent was obtained. I have identified the patient, determined the appropriateness of sedation and have assessed the patient immediately prior to the procedure. All medicine(s) and interventions are by my order.
--- NOTE | 2019-04-18 11:27 | Post Anesthesia Assessment ---
Date of Service April 18, 2019 Post Sedation Assessment Vital Signs Temp Pulse Pulse Resp BP BP Pulse Ox 04/19/19 11:01 36.4 C L 50 L 18 118/79 95 04/19/19 07:16 36.7 C 54 L 18 126/70 94 04/19/19 03:11 36.9 C 54 L 17 121/76 96 04/19/19 00:00 55 L 04/18/19 23:53 36.7 C 56 L 18 126/80 98 04/18/19 19:57 36.7 C 59 L 18 116/74 98 04/18/19 15:38 36.7 C 60 18 120/82 97 04/18/19 14:02 36.5 C 58 L 20 126/73 97 04/18/19 13:45 64 20 124/74 94 Recovery Score Activity: Moves 4 extremities Respiration: Deep Breath/Cough Circulation: +/-20% PreAnes Value Consciousness: Arouseable (by name) Oxygen Saturation: > 92% On Room Air Post Sedation Plan On clinical assessment, the patient appears to have tolerated the sedation without complications. Patient is recovering as anticipated. Patient will continue to be monitored by nursing and may be discharged when sedation discharge criteria are met per below protocol. Upon Completions of procedure and additional 15 minutes continue every 5 minute vital signs and the P.A.R. score; then discharge to a Phase I or Fast Track to Phase II per the following guidelines: * Discharge Patient to appropriate Phase II area if PAR is 8 or greater or r eturn to pre- procedure baseline. The post - procedure orders will be as directed. * If PAR score is less than 8 or not return to pre-procedure baseline then patient will follow Phase I monitoring till PAR is reached for Phase II. The Phase I may be done in procedure room or may call to secure a Phase I area. * If naloxone or flumazenil are used for reversal, hold in Phase I for continued monitoring from when last reversal dose was given for a minimum of 60 minutes or longer pending the nurse and/or physician discretion of patient condition before discharge to Phase II. Please call the Sedation Physician to re-evaluate and complete post-note for discharge to Phase II area. Do NOT discharge from procedure sedation or Phase 1 until post- sedation evaluation note is complete by procedure /sedation MD Sedation Discharge Instructions to be given to the patient at discharge to home.
--- NOTE | 2019-04-18 11:40 | Cardiac Catheterization ---
Cardiac Cath Procedure Full Procedure Date April 18, 2019 Pre-Procedure Diagnosis Pre-Procedure Diagnosis: CHF, Cardiomyopathy and Arrhythmia AUC Score AUC Score: 8 Post-Procedure Diagnosis Post-Procedure Diagnosis: Moderate CAD and Elevated Intracardiac Pressures Procedure(s) Performed Procedure(s) Performed: Coronary Angiography and Left Heart Cath Associate Chemist Yon Mark DO Picker/Puller(s) Ellis MANAGER BODY Estimated Blood Loss Estimated Blood Loss: 5cc Medication(s) Medication(s): Fentanyl, Heparin, Lidocaine 1%, Nicardipine, Nitroglycerin and Versed Summary of Findings NURSING RESIDENT diagonal #1 50% mid LAD Hemodynamics Rest Ao:: 102/59/78 Final Ao: 125/71/92 LV: 120/4/21 Recommendations Recommendations: Medical Therapy and/or Counseling and Management Recommendatons (FFR LAD) Radiation Exposure (mGy) 890 Contrast (mls) 45 Fluids (cc crystalloids) Fluids (cc crystalloids): 20cc Nss Anesthesia Moderate sedation. Start 1052. End 1122. Sedation monitor: Nunu SEGURA Procedural Complication(s) None Disposition PCU ACC Data: Mailing Clerk Cardiac Status Clinical evaluation leading to the procedure CAD Presenation: No Sxs, No angina (Unstable dysrhythmia, sustained ventricular tachycardia, cardiomyopathy) Anginal Classification: CCS I Heart Failure: NYHA Class: CCS II Cardiogenic Shock within 24 Hours: No Cardiac Arrest within 24 Hours: No Imaging Studies Past 6 Months: No Stress Studies Past 6 Months: No Coronary Anatomy Dominant: Left Left Main (% Stenosis): Normal LAD (% Stenosis): Proximal (20%) and Mid (50%) D1 (% Stenosis): Ostial (100% chronic total occlusion with JAIME I flow, distal vessel fills via left to left collaterals from the apical LAD.) D2 (% Stenosis): Ostial (20%) D3 (% Stenosis): Normal Circumflex (% Stenosis): Mid (10%) OM1 (% Stenosis): Normal (1.5mm vessel) OM2 (% Stenosis): Normal (1mm vessel) OM3 (% Stenosis): Proximal (20%) L PL1 (% Stenosis): Normal L PL2 (% Stenosis): Normal (LPL2 and LPL3 are small vessels (1.5 - 2.0mm) ) L PDA (% Stenosis): Normal RCA (% Stenosis): Normal (nondominant) AM (% Stenosis): Ostial (60%, small 1.5mm vessel) Ramus (% Stenosis): Mid (30%) Diagnostic Physicians Name: Yon Mark DO Status: Urgent Closure Device Percutaneous Entry Location: Radial Closure Device: Radial Band Recommendations: Medical Therapy and/or Counseling and Management Recommendatons (FFR LAD) Intraprocedure Events Significant Disection: No Perforation: No
--- NOTE | 2019-04-18 11:47 | Cardiology Progress Note ---
Date of Service April 18, 2019 Assessment & Plan (1) Non-sustained ventricular tachycardia: (2) Methamphetamine abuse: (3) Dilated cardiomyopathy: (4) Acute systolic heart failure: Transition lisinopril to losartan due to nonproductive cough. Risks, benefits, alternatives to cardiac catheterization discussed at length. Patient agreeable. Discuss indication for LifeVest. Will order and obtain guidance from elementary school social worker regarding payment due to financial hardship. Continue other cardiovascular medications including beta-valdemar, and amiodarone. Further recommendations pending results of cardiac catheterization. Subjective Patient seen and examined at the bedside. Denies chest pain or unusual shortness of breath. Edema improved. Occasional PVCs on telemetry. No recurrent ventricular tachycardia. Blood pressure trending upward. Reports dry cough this morning. No orthopnea or paroxysmal nocturnal dyspnea. Offers no other concerns/complaints at this time. Review of Systems Review of Systems: All systems reviewed & are unremarkable except as noted in HPI & below Physical Exam Physical Exam: General: NAD, AAO x3, well nourished. HEENT: Normocephalic. Atraumatic. Conjunctiva pink, no scleral icterus. Neck: No carotid bruits, the carotid upstrokes are brisk. No JVD. No HJR Heart: Regular normal S-1 and S-2 no S-3 or S-4 gallop. No murmurs or rub appreciated. PMI is not displaced. No RV heave. Lungs: Clear bilateral without rales , rhonchi, or wheeze. Abdomen: Normal bowel sounds. Soft. Nontender. No masses or organomegaly. No abdominal bruits. Extremities: Trace bilateral pedal edema. Pulses: radial=2/4, Dorsalis pedis =2/4, posterior tibial=2/4. Neuro: Cranial nerves grossly intact. No focal motor deficit. Results & Data Vital Signs (Past 12 Hours) Vital Signs Temp Pulse Pulse Resp BP Pulse Ox 04/18/19 08:00 58 L 04/18/19 06:42 36.4 C L 56 L 19 127/85 98 04/18/19 04:00 36.9 C 60 16 130/77 98 Laboratory Results Laboratory Results - last 24 hr 04/18/19 04/18/19 05:18 05:18 WBC 8.60 RBC 4.57 L Hgb 14.0 Hct 41.4 L MCV 90.6 MCH 30.6 MCHC 33.8 RDW Std Deviation 45.3 RDW Coeff of Mari 13.7 Plt Count 198 MPV 12.0 H Creatinine 0.97 Est Cr Clr Drug Dosing 77.6 Est GFR ( Amer) 101.4 Est GFR (Non-Af Amer) 87.5
--- NOTE | 2019-04-18 11:49 | Post Anesthesia Assessment ---
Date of Service April 18, 2019 Post Sedation Assessment Vital Signs Temp Pulse Pulse Resp BP BP Pulse Ox 04/18/19 08:00 58 L 04/18/19 06:42 36.4 C L 56 L 19 127/85 98 04/18/19 04:00 36.9 C 60 16 130/77 98 04/17/19 23:06 37.6 C H 61 17 115/75 97 04/17/19 18:02 36.6 C 54 L 18 137/91 04/17/19 17:27 55 L 14 04/17/19 17:26 56 L 15 04/17/19 17:25 54 L 17 04/17/19 17:24 56 L 20 04/17/19 17:23 52 L 17 04/17/19 17:22 53 L 20 98 04/17/19 17:21 55 L 18 98 04/17/19 17:20 52 L 19 99 04/17/19 17:19 53 L 17 98 04/17/19 17:18 53 L 17 94 04/17/19 17:17 52 L 20 100 04/17/19 17:16 54 L 17 04/17/19 17:15 54 L 18 100 04/17/19 17:14 53 L 18 96 04/17/19 17:13 53 L 17 95 04/17/19 17:12 54 L 18 97 04/17/19 17:11 53 L 18 98 04/17/19 17:10 54 L 19 99 04/17/19 17:09 54 L 20 95 04/17/19 17:08 54 L 20 04/17/19 17:07 54 L 22 100 04/17/19 17:06 55 L 19 04/17/19 17:05 54 L 19 100 04/17/19 17:04 56 L 22 04/17/19 17:03 57 L 19 04/17/19 17:02 54 L 20 98 04/17/19 17:01 54 L 21 98 04/17/19 17:00 54 L 16 100 04/17/19 16:59 54 L 20 99 04/17/19 16:58 54 L 23 04/17/19 16:57 54 L 21 100 04/17/19 16:56 60 19 97 04/17/19 16:55 55 L 24 04/17/19 16:54 54 L 26 H 04/17/19 16:53 54 L 27 H 04/17/19 16:52 54 L 17 99 04/17/19 16:51 53 L 22 04/17/19 16:50 53 L 26 H 04/17/19 16:49 54 L 26 H 04/17/19 16:48 55 L 20 100 04/17/19 16:47 55 L 23 04/17/19 16:46 54 L 22 04/17/19 16:45 55 L 18 04/17/19 16:44 57 L 24 91 04/17/19 16:43 56 L 19 100 04/17/19 16:42 56 L 20 100 04/17/19 16:41 64 21 93 04/17/19 16:40 60 19 97 04/17/19 16:39 55 L 16 100 04/17/19 16:38 55 L 16 04/17/19 16:00 36.4 C L 54 L 14 93 04/17/19 15:00 51 L 13 119/76 98 04/17/19 14:01 52 L 16 04/17/19 14:00 51 L 11 L 126/93 100 04/17/19 13:00 52 L 19 98 04/17/19 12:00 36.8 C 49 L 12 99 Recovery Score Activity: Moves 4 extremities Respiration: Deep Breath/Cough Circulation: +/-20% PreAnes Value Consciousness: Arouseable (by name) Oxygen Saturation: O2 needed for >90% Discharge Sedation Level of Care: Fast Track Phase II Post Sedation Plan On clinical assessment, the patient appears to have tolerated the sedation without complications. Patient is recovering as anticipated. Patient will continue to be monitored by nursing and may be discharged when sedation discharge criteria are met per below protocol. Upon Completions of procedure and additional 15 minutes continue every 5 minute vital signs and the P.A.R. score; then discharge to a Phase I or Fast Track to Phase II per the following guidelines: * Discharge Patient to appropriate Phase II area if PAR is 8 or greater or return to pre- procedure baseline. The post - procedure orders will be as directed. * If PAR score is less than 8 or not return to pre-procedure baseline then patient will follow Phase I monitoring till PAR is reached for Phase II. The Phase I may be done in procedure room or may call to secure a Phase I area. * If naloxone or flumazenil are used for reversal, hold in Phase I for continued monitoring from when last reversal dose was given for a minimum of 60 minutes or longer pending the nurse and/or physician discretion of patient condition before discharge to Phase II. Please call the Sedation Physician to re-evaluate and complete post-note for discharge to Phase II area. Do NOT discharge from procedure sedation or Phase 1 until post- sedation evaluation note is complete by procedure /sedation MD Sedation Discharge Instructions to be given to the patient at discharge to home.
--- NOTE | 2019-04-18 11:58 | Cardiac Catheterization ---
Cardiac Cath Procedure Full Procedure Date April 18, 2019 Pre-Procedure Diagnosis Pre-Procedure Diagnosis: Cardiomyopathy AUC Score AUC Score: 7 Post-Procedure Diagnosis Post-Procedure Diagnosis: Moderate CAD Procedure(s) Performed Procedure(s) Performed: Coronary Angiography and Fractional Flow [employer] Froylan Davis MD Import Export Coordinator(s) Ellis SAHU Estimated Blood Loss Estimated Blood Loss: 5cc Medication(s) Medication(s): Adenosine and Heparin Summary of Findings FFR OF MID LAD For full details of patient's coronary angiography please see cath report dictated by Dr. Mark. Briefly, patient found to have moderate mid LAD disease. Decision to further evaluate with FFR. Procedure: - Left main cannulated with EBU 3.5 guide. - BMW wire placed into distal LAD - ACIST FFR catheter equalized and placed into distal LAD. - FFR 0.90 - Catheter/wire removed. No post procedure coronary complications. Summary: 1. Non-obstructive moderate mid LAD disease (FFR 0.90). Recommendations: - Guideline directed medical therapy for non-ischemic cardiomyopathy and ASCVD risk factor modification per Dr. Mark Hemodynamics Rest Ao:: 121/73/92 Final Ao: 133/81/101 LV: 120/21 Recommendations Recommendations: Medical Therapy and/or Counseling and Management Recommendatons (FFR LAD) Specimens Specimens: None Radiation Exposure (mGy) 1297 Contrast (mls) 90 Fluids (cc crystalloids) Fluids (cc crystalloids): 60 Drains Drains: none Anesthesia moderate Procedural Complication(s) None Disposition PCU ACC Data: E M Assembler Cardiac Status Clinical evaluation leading to the procedure CAD Presenation: Sx unlikely to be ischemic Anginal Classification: CCS III Heart Failure: Yes Cardiogenic Shock within 24 Hours: No Cardiac Arrest within 24 Hours: No Imaging Studies Past 6 Months: Yes Stress Studies Past 6 Months: No Diagnostic Physicians Name: Froylan Davis MD Status: Elective Closure Device Percutaneous Entry Location: Radial Recommendations: Medical Therapy and/or Counseling and Management Recommendatons (FFR LAD) Intraprocedure Events Significant Disection: No Perforation: No
[2019-04-18] MEDS: METOPROLOL TARTRATE 25 MG TAB PO SCH ×2 (12:23→20:10)
[2019-04-18] MEDS: LISINOPRIL 2.5 MG TAB PO SCH (12:47)
[2019-04-18] MEDS ORDERED: ACETAMINOPHEN 325 MG TAB PO PRN (13:15)
--- NOTE | 2019-04-18 19:03 | Hospitalist Progress Note ---
Date of Service April 18, 2019 Assessment & Plan (1) Non-sustained ventricular tachycardia: This is a 53-year-old male with history of diverticulosis presents with palpitations since yesterday and was found to have nonsustained V. tach. -EMS with rhythm strip showing nonsustained ventricular tachycardia in the setting of methamphetamine use -MDMA and marijuana also positive on urine tox screen - off Lidocaine drip transitioned to Amiodarone PO also on Metoprolol and Lisinopril -Status post cardiac cath April 18 2019 Nonobstructive moderate mid LAD disease Plan for evaluation for AICD placement (2) Methadone use: counselling done Denies using methadone or other illicit drugs, does admit to smoking marijuana Denies alcohol use DVT Ppx: SQ Lovenox Code status: FULL PCP: Pilgram Disp: pending Subjective Follow-up for V. tach, nonsustained Seen resting in bed, status post cardiac cath Denies chest pain, shortness of breath, palpitations, dizziness No abdominal pain, no nausea Denies other symptoms Review of Systems Review of Systems: All systems reviewed & are unremarkable except as noted in HPI & below Physical Exam Physical Exam: General- oriented x 3, not in distress, speaks in sentences with no effort or accessory muscle use Eyes- anicteric Neck- no JVD Lungs- clear breath sounds, no crackles bilaterally Heart- normal rate, regular rhythm; no murmurs Abdomen- normal bowel sounds, nondistended, soft, nontender Extremities- no pretibial edema, no calf tenderness Right wrist-no bleeding or hematoma Neuro- alert, oriented x 3; no gross focal neurologic deficits Skin- warm & dry Results & Data Vital Signs (Past 12 Hours) Vital Signs Temp Pulse Pulse Pulse Resp BP Pulse Ox 04/18/19 15:38 36.7 C 60 18 120/82 97 04/18/19 14:02 36.5 C 58 L 20 126/73 97 04/18/19 13:45 64 20 124/74 94 04/18/19 13:30 59 L 20 132/81 95 04/18/19 13:07 57 L 20 133/80 100 04/18/19 12:52 52 L 18 132/85 96 04/18/19 12:50 36.6 C 51 L 18 131/81 97 04/18/19 12:44 36.7 C 53 L 20 131/81 97 04/18/19 12:25 36.7 C 53 L 53 L 20 132/87 94 04/18/19 12:05 36.8 C 53 L 20 128/80 94 04/18/19 08:00 58 L Laboratory Results Laboratory Results - last 24 hr 04/18/19 04/18/19 05:18 05:18 WBC 8.60 RBC 4.57 L Hgb 14.0 Hct 41.4 L MCV 90.6 MCH 30.6 MCHC 33.8 RDW Std Deviation 45.3 RDW Coeff of Mari 13.7 Plt Count 198 MPV 12.0 H Creatinine 0.97 Est Cr Clr Drug Dosing 77.6 Est GFR ( Amer) 101.4 Est GFR (Non-Af Amer) 87.5
[2019-04-18] MEDS: ENOXAPARIN INJ 40 MG/0.4 ML SYR SQ SCH (20:10)
[2019-04-19 06:30] LABS: Amphetamine Urine, Confirm 911 NG/ML (CUTOFF=250); Marijuana Quant, GCMS Urine 34 NG/ML (CUTOFF=5)
[2019-04-19] MEDS: AMIODARONE 200 MG TAB PO SCH ×2 (08:16→21:53)
[2019-04-19] MEDS: METOPROLOL TARTRATE 25 MG TAB PO SCH ×2 (08:16→21:52)
[2019-04-19] MEDS: LOSARTAN POTASSIUM 25 MG TAB PO SCH (08:16)
[2019-04-19 10:06] LABS: Chol HDL Ratio 3; Cholesterol 92 mg/dl (0-200); HDL Cholesterol 29 mg/dl; LDL Cholesterol Calculated 48 mg/dl; Triglycerides 76 mg/dl (0-150); VLDL Cholesterol 15 mg/dl
[2019-04-19] MEDS ORDERED: ASPIRIN 81 MG CHEW PO SCH (11:00)
[2019-04-19] MEDS: ATORVASTATIN 40 MG TAB PO SCH (12:02)
--- NOTE | 2019-04-19 13:39 | Cardiology Progress Note ---
Date of Service April 19, 2019 Assessment & Plan (1) Non-sustained ventricular tachycardia: (2) Methamphetamine abuse: (3) Dilated cardiomyopathy: (4) CAD (coronary artery disease), [place] coronary artery: (5) Acute systolic heart failure: Cardiac catheterization demonstrated chronic total occlusion of diagonal branch vessel as well as a moderate 50% mid LAD stenosis. LAD stenosis not significant per FFR measurement. Medical management recommended. Aspirin and statin therapy added. Continue losartan, amiodarone, and metoprolol. Patient will be transition to Toprol-XL at time of discharge. Add low-dose Aldactone 12.5 mg daily. Repeat basic metabolic panel in a.m. Recommend LifeVest. Patient agreeable. Awaiting approval. Repeat resting 2D transthoracic echocardiogram in 10 weeks to determine eligibility for ICD implantation. Discussed importance of avoiding any future illicit drug use. Subjective Patient seen and examined at bedside. Feeling well from a cardiovascular perspective. No recurrent dysrhythmias on telemetry. Tolerating current medications. Requesting discharge if possible. Review of Systems Review of Systems: All systems reviewed & are unremarkable except as noted in HPI & below Physical Exam Physical Exam: General: NAD, AAO x3, well nourished. HEENT: Normocephalic. Atraumatic. Conjunctiva pink, no scleral icterus. Neck: No carotid bruits, the carotid upstrokes are brisk. No JVD. No HJR Heart: Regular normal S-1 and S-2 no S-3 or S-4 gallop. No murmurs or rub appreciated. PMI is not displaced. No RV heave. Lungs: Clear bilateral without rales , rhonchi, or wheeze. Abdomen: Normal bowel sounds. Soft. Nontender. No masses or organomegaly. No abdominal bruits. Extremities: Right anterior wrist dressing clean, dry, intact. Right radial pulse palpable. No clubbing, cyanosis, or edema. Dorsalis pedis =2/4, posterior tibial=2/4. Neuro: Cranial nerves grossly intact. No focal motor deficit. Results & Data Vital Signs (Past 12 Hours) Vital Signs Temp Pulse Resp BP BP Pulse Ox 04/19/19 11:01 36.4 C L 50 L 18 118/79 95 04/19/19 07:16 36.7 C 54 L 18 126/70 94 04/19/19 03:11 36.9 C 54 L 17 121/76 96
--- NOTE | 2019-04-19 15:29 | Hospitalist Progress Note ---
Date of Service April 19, 2019 Assessment & Plan (1) Non-sustained ventricular tachycardia: This is a 53-year-old male with history of diverticulosis presents with palpitations since yesterday and was found to have nonsustained V. tach. -EMS with rhythm strip showing nonsustained ventricular tachycardia in the setting of methamphetamine use -MDMA and marijuana also positive on urine tox screen - off Lidocaine drip transitioned to Amiodarone PO also started on Metoprolol and losartan Aldactone added -Status post cardiac cath April 18 2019 Nonobstructive moderate mid LAD disease Aspirin and atorvastatin ordered Patient will have LifeVest placed before discharge Will need repeat echo in the evaluation for AICD follow-up with cardiology (2) Methadone use: counselling done Denies using methadone or other illicit drugs, does admit to smoking marijuana Denies alcohol use DVT Ppx: SQ Lovenox Code status: FULL PCP: Pilgram Disp: pending Discharge to home medically stable, cleared by cardiology Subjective Follow-up for nonsustained V. tach Cardiomyopathy Seen resting in bed, comfortable, in good spirits Denies shortness of breath, chest pain, dizziness, palpitations No other symptoms Review of Systems Review of Systems: All systems reviewed & are unremarkable except as noted in HPI & below Physical Exam Physical Exam: General- oriented x 3, not in distress, speaks in sentences with no effort or accessory muscle use Eyes- anicteric Neck- no JVD Lungs- clear BS, no crackles, no wheezing bilaterally Heart- normal rate, regular rhythm; no murmurs Abdomen- normal bowel sounds, nondistended, soft, nontender Extremities- no pretibial edema, no calf tenderness Neuro- alert, oriented x 3; no gross focal neurologic deficits Skin- warm & dry Results & Data Vital Signs (Past 12 Hours) Vital Signs Temp Pulse Resp BP Pulse Ox 04/19/19 11:01 36.4 C L 50 L 18 118/79 95 04/19/19 07:16 36.7 C 54 L 18 126/70 94
[2019-04-19] MEDS: SPIRONOLACTONE 25 MG TAB PO SCH (16:01)
[2019-04-19 19:31] LABS: BUN Creatinine Ratio 12.3 (10-20); Creatinine Clr Calc Pharmacy 73.8 ml/min; Est GFR (African American) 95.5; Est GFR (Non-African American) 82.4; Magnesium 2.1 mg/dl (1.8-2.4); Potassium 3.9 mmol/L (3.5-5.1)
[2019-04-19] MEDS: ENOXAPARIN INJ 40 MG/0.4 ML SYR SQ SCH (21:54)
[2019-04-20] MEDS: LOSARTAN POTASSIUM 25 MG TAB PO SCH (07:58)
[2019-04-20] MEDS: AMIODARONE 200 MG TAB PO SCH (07:59)
[2019-04-20] MEDS: SPIRONOLACTONE 25 MG TAB PO SCH (07:59)
[2019-04-20] MEDS: ATORVASTATIN 40 MG TAB PO SCH (07:59)
[2019-04-20] MEDS: METOPROLOL TARTRATE 25 MG TAB PO SCH (08:00)
[2019-04-20] MEDS ORDERED: ASPIRIN 81 MG ECTAB PO SCH (09:00)
[2019-04-20] MEDS ORDERED: AMIODARONE 200 MG TAB PO SCH (14:00)
--- NOTE | 2019-04-20 16:50 | Hospitalist Progress Note ---
Date of Service April 20, 2019 Assessment & Plan (1) Non-sustained ventricular tachycardia: This is a 53-year-old male with history of diverticulosis presents with palpitations since yesterday and was found to have nonsustained V. tach. -EMS with rhythm strip showing nonsustained ventricular tachycardia in the setting of methamphetamine use -MDMA and marijuana also positive on urine tox screen -Received intravenous lidocaine drip with transitioned to amiodarone p.o. -Has been started on metoprolol as well -Appreciate cardiology input and recommendation -Status post cardiac cath April 18 2019 -Nonobstructive moderate mid LAD disease -Aspirin and atorvastatin ordered -Patient will have LifeVest placed before discharge -Will need repeat echo in the evaluation for AICD follow-up with cardiology -He will have a cardiac arrest this afternoon -Likely to have 2 steps saturation test before discharge tomorrow (2) Dilated cardiomyopathy: Cardiac cath demonstrated chronic total occlusion of diagonal branch as well as moderate 50% mid LAD stenosis Has significant CAD Medical therapy contemplated Echo showed EF of 20 to 25% with global hypokinesis of the left ventricle with mild dilatation (3) Methadone use: Counselling done Denies using methadone or other illicit drugs, does admit to smoking marijuana Denies alcohol use DVT Ppx: SQ Lovenox Code status: FULL PCP: Pilgram Disp: pending Discharge to home medically stable and after cleared by cardiology Subjective 04/20 Patient was seen and examined in the telemetry unit He complains to have extreme weakness and tiredness even at rest Gets shortness of breath on minimal exertion without any chest pain Has had short runs of V. tach this morning Review of Systems Review of Systems: All systems reviewed and are unremarkable except as noted. Respiratory: + dyspnea on exertion Cardiovascular: + dyspnea (On exertion) Neurologic: Very weak and lethargic Physical Exam Physical Exam: Sitting on a chair with minimal respiratory distress Constitutional: well developed and + ill appearing Eyes: PERRL, conjunctivae normal, anicteric sclerae ENMT: external ear and nose normal, oropharynx normal Mallampati Class: IV Neck: trachea midline, no thyromegaly Respiratory: normal respiratory effort and + respiratory distress (Minimal distress at rest) Cardiovascular: Rate/Rhythm: regular rate and regular rhythm Gastrointestinal (Abdomen): Inspection/Auscultation: abdomen normal to inspection Percussion/Palpation: abdomen soft Musculoskeletal: No acute arthritis in any of the joint Neurologic: moves all extremities Very weak and lethargic Lymphatic: no cervical or axillary lymphadenopathy Results & Data Vital Signs (Past 12 Hours) Vital Signs Temp Pulse Resp BP BP Pulse Ox 04/20/19 15:08 36.6 C 57 L 19 124/74 98 04/20/19 11:19 36.8 C 57 L 18 127/76 98 04/20/19 07:14 36.6 C 59 L 18 136/77 94 Laboratory Results BMP 04/19/19 18:56 Sodium 142 Potassium 3.9 Chloride 108 H Carbon Dioxide 28 BUN 13 Creatinine 1.02 Glucose 85 Calcium 8.0 L Medications Administered Current Inpatient Medications Acetaminophen (Tylenol) 650 mg PO Q4H PRN PRN Reason: PAIN 1-3 Stop: 05/18/19 13:14 Last Admin: 04/19/19 09:55 Dose: 650 mg Documented by: Amiodarone HCl (Cordarone) 200 mg PO TID [facility] Stop: 05/20/19 13:59 Last Admin: 04/20/19 13:41 Dose: 200 mg Documented by: Aspirin (Ecotrin Ectab) 81 mg PO DAILY [facility] Stop: 05/20/19 08:59 Last Admin: 04/20/19 10:11 Dose: 81 mg Documented by: Atorvastatin Calcium (Lipitor) 40 mg PO QAM [facility] Stop: 05/19/19 08:59 Last Admin: 04/20/19 07:59 Dose: 40 mg Documented by: Enoxaparin Sodium (Lovenox) 40 mg SQ HS [facility] Stop: 05/15/19 20:59 Last Admin: 04/19/19 21:54 Dose: Not Given Documented by: Losartan Potassium (Cozaar) 25 mg PO QAM [facility] Stop: 05/19/19 08:59 Last Admin: 04/20/19 07:58 Dose: 25 mg Documented by: Metoprolol Tartrate (Lopressor) 12.5 mg PO BID [facility] Stop: 05/17/19 08:59 Last Admin: 04/20/19 08:00 Dose: 12.5 mg Documented by: Ranitidine HCl (Zantac) 150 mg PO BID [facility] Stop: 05/16/19 09:29 Last Admin: 04/20/19 08:00 Dose: 150 mg Documented by: Spironolactone (Aldactone) 12.5 mg PO DAILY [facility] Stop: 05/19/19 13:44 Last Admin: 04/20/19 07:59 Dose: 12.5 mg Documented by:
--- NOTE | 2019-04-20 16:53 | Cardiology Progress Note ---
Date of Service April 20, 2019 Assessment & Plan (1) Non-sustained ventricular tachycardia: (2) Methamphetamine abuse: (3) Dilated cardiomyopathy: (4) CAD (coronary artery disease), [place] coronary artery: (5) Acute systolic heart failure: Cardiac catheterization demonstrated chronic total occlusion of diagonal branch vessel as well as a moderate 50% mid LAD stenosis. LAD stenosis not significant per FFR measurement. Medical management recommended. Continue aspirin and statin therapy. In regard to patient's heart failure medications, he will continue metoprolol, losartan, and low-dose Aldactone. Transition metoprolol tartrate to Toprol-XL 25 mg daily. Amiodarone titrated to 200 mg 3 times daily today due to recurrent nonsustained ventricular tachycardia. Recommend additional 24 hours of observation, however, patient adamant that he will be leaving the hospital today. Continue amiodarone 200 mg 3 times daily x5 days then reduce dose to 200 mg twice daily. Close cardiology follow-up in 7 to 14 days in the outpatient setting. Patient being fitted for LifeVest currently. He is agreeable to electrophysiology consultation. Discussed importance of avoiding any future illicit drug use. Subjective Patient seen and examined at the bedside. Recurrent salvos of nonsustained ventricular tachycardia recorded this morning as well as during early afternoon. Reports agitation related to the behavior of his roommate. Roommate was experiencing difficulties overnight which interrupted patient sleep. Currently appears agitated. Complained of cage supervisor regarding his sleeping condition. Patient is adamant that he is leaving today. Amiodarone increased to 200 mg 3 times daily. Patient denies chest pain or shortness of breath. No lightheaded, dizziness, syncope, or near syncope. Review of Systems Review of Systems: All systems reviewed & are unremarkable except as noted in HPI & below Physical Exam Physical Exam: General: NAD, AAO x3, well nourished. HEENT: Normocephalic. Atraumatic. Conjunctiva pink, no scleral icterus. Neck: No carotid bruits, the carotid upstrokes are brisk. No JVD. No HJR Heart: Regular normal S-1 and S-2 no S-3 or S-4 gallop. No murmurs or rub appreciated. PMI is not displaced. No RV heave. Lungs: Clear bilateral without rales , rhonchi, or wheeze. Abdomen: Normal bowel sounds. Soft. Nontender. No masses or organomegaly. No abdominal bruits. Extremities: Right anterior wrist dressing clean, dry, intact. Right radial pulse palpable. No clubbing, cyanosis, or edema. Dorsalis pedis =2/4, posterior tibial=2/4. Neuro: Cranial nerves grossly intact. No focal motor deficit. Results & Data Vital Signs (Past 12 Hours) Vital Signs Temp Pulse Resp BP BP Pulse Ox 04/20/19 15:08 36.6 C 57 L 19 124/74 98 04/20/19 11:19 36.8 C 57 L 18 127/76 98 04/20/19 07:14 36.6 C 59 L 18 136/77 94
[2019-04-20] MEDS ORDERED: METOPROLOL SUCC 25MG EXT REL TAB PO SCH (17:00)
--- NOTE | 2019-04-22 07:27 | Discharge Summary ---
Date of Service April 22, 2019 Admission HPI Per Admitting Provider This is a 53-year-old male with history of diverticulosis presents with palpitations since yesterday. Patient endorses using meth 2 days ago but denies any other drug use. Patient is a poor historian. States that he has had intermittent palpitations over the past month. Denies any chest pain or shortness of breath. Was brought in by EMS and was found to have nonsustained V. tach on the monitor in route and was given 150 mg of lidocaine. Daughter, at bedside, states that patient has been acting erratically for 8 months. She has noticed him to have a lower extremity swelling for the past few weeks. No known history of congestive heart failure or dysrhythmia. Patient denies any home medications and has not seen Dr. Trejo since 2013. Only known surgical issue is diverticulitis s/p partial bowel resection. ROS is limited due to patient's drowsy cognitive state but patient denies fever, chills, chest pain, shortness of breath or abdominal pain. Admission Exam Per Admitting Provider Physical Exam: General Appearance: WD/WN, no apparent distress, lethargic but arousable Head: normocephalic, atraumatic Eyes: normal inspection, PERRL, EOMI ENT: hearing grossly normal, pharynx normal (dry mucous membranes) Neck: supple, no JVD, no adenopathy Respiratory/Chest: lungs clear to auscultation. No wheezes, rales or rhonci. No respiratory distress or accessory muscle use Cardiovascular: regular rate, rhythm, no murmur, normal peripheral pulses, 2+ BLE edema Abdomen/GI: normal bowel sounds, soft, non-tender to palpation Extremities/Musculoskelatal: normal inspection, no calf tenderness, normal capillary refill, no pedal edema Neurologic/Psych: lethargic but able to answer some questions, follow commands. Limited judgement/insight Skin: normal color, warm/dry Principal Diagnosis Non Sustained V-Tach Discharge Exam Constitutional well developed and + ill appearing Eyes PERRL, conjunctivae normal, anicteric sclerae ENMT external ear and nose normal, oropharynx normal Mallampati Class: IV Neck trachea midline, no thyromegaly Respiratory normal respiratory effort and + respiratory distress (Minimal distress at rest) Cardiovascular Rate/Rhythm: regular rate and regular rhythm Gastrointestinal (Abdomen) Inspection/Auscultation: abdomen normal to inspection Percussion/Palpation: abdomen soft Neurologic moves all extremities Lymphatic no cervical or axillary lymphadenopathy Discharge Data Allergies Allergy/AdvReac Type Severity Reaction Status Date / Time prednisone Allergy Unknown MAKES SICK Verified 04/15/19 16:40 TO STOMACH Consultations 04/15/19 16:55 ED Decision to Admit Stat 04/15/19 19:27 Consult Cardiology Routine Consult Case Management - Discharge Planning Routine Consult Pricing Clerk Routine 04/20/19 09:43 Consult Cardiology Routine Procedures Performed Operation Date: 04/18/19 09:30 Actual Procedures p Cath, Left with Cors and Vent - Yon Mark, DO s Cineradiography w/Routine Exam - Yon Mark DO s Fraction Flow [place] S[facility] Ves - Morteza Davis MD Ordered Studies 04/15/19 16:54 CT angio chest PE protocol Stat 04/15/19 19:27 US venous doppler LE BI Routine 04/18/19 08:31 CL Cath Imgs for PACS use only Stat Hospital Course (1) Non-sustained ventricular tachycardia: This is a 53-year-old male with history of diverticulosis presents with palpitations since yesterday and was found to have nonsustained V. tach. -EMS with rhythm strip showing nonsustained ventricular tachycardia in the setting of methamphetamine use -MDMA and marijuana also positive on urine tox screen -Received intravenous lidocaine drip with transitioned to amiodarone p.o. -Has been started on metoprolol as well -Appreciate cardiology input and recommendation -Status post cardiac cath April 18 2019 -Nonobstructive moderate mid LAD disease -Aspirin and atorvastatin ordered -Patient will have LifeVest placed before discharge -Will need repeat echo in the evaluation for AICD follow-up with cardiology -He will have a cardiac arrest this afternoon -Likely to have 2 steps saturation test before discharge tomorrow (2) Dilated cardiomyopathy: Cardiac cath demonstrated chronic total occlusion of diagonal branch as well as moderate 50% mid LAD stenosis Has significant CAD Medical therapy contemplated Echo showed EF of 20 to 25% with global hypokinesis of the left ventricle with mild dilatation (3) Methadone use: Counselling done Denies using methadone or other illicit drugs, does admit to smoking marijuana Denies alcohol use DVT Ppx: SQ Lovenox Code status: FULL PCP: Pilgram Disp: pending Discharge to home medically stable and after cleared by cardiology Total Time Total Time Spent Total Time Spent (In Minutes): 20 minutes Total Time Includes: Examination of the Patient, Discharge Planning and Medication Reconciliation Discharge Plan Discharge Items Patient Disposition: Against Medical Advice Reason For Visit: NON-SUSTAINED V TACH Discharge Diagnosis: Non Sustained V-Tach Condition: Fair Follow-up/Referrals: Venkata Morales MD [Primary Care Provider] - Add Provider Instructions: take it easy Prescriptions: New atorvastatin 40 mg Tablet 40 mg PO QAM 30 Days Qty: 30 RF: 0 amiodarone 200 mg Tablet 200 mg PO TID 30 Days Qty: 90 RF: 0 aspirin [Ecotrin Low Strength] 81 mg Tablet,Delayed Release (Dr/Ec) 81 mg PO DAILY 30 Days Qty: 30 RF: 0 spironolactone 25 mg Tablet 12.5 mg PO DAILY 30 Days Qty: 15 RF: 0 ranitidine HCl 150 mg Tablet 150 mg PO BID 30 Days Qty: 60 RF: 0 losartan 25 mg Tablet 25 mg PO QAM 30 Days Qty: 30 RF: 0 metoprolol succinate 25 mg Tablet Extended Release 24 Hr 25 mg PO QAM 30 Days Qty: 30 RF: 0 No Action No Known Home Medications RF: 0 Stand-Alone Forms: [facility] Discharge Orders: Left Against Medical Advice (Routine); Ordered 04/20/19 Ordered By: Twin Salazar Admission Data Admit Date/Time: 04/15/19 17:51 Attending Provider: Twin Salazar Admit Provider: Prasanth Martell Primary Care Provider: Venkata Morales Other Providers: Prasanth Martell ; Yon Mark ; Matthew Jensen ; Britta Arrieta Service: Telemetry Other Interventions: Discharge Summary Assessment (RN) Last Done: 04/20/19 18:05 DC Date/Time DO NOT enter until pt leaves facility: 04/20/19 18:19
--- NOTE | 2019-04-23 02:10 | Consultation Report ---
DATE OF CONSULTATION: 04/20/2019 DATE OF CONSULT: 04/20/2019 REFERRING PHYSICIAN: Dr. Mark. REASON FOR CONSULT: Ventricular tachycardia. HISTORY OF PRESENT ILLNESS: This is a 53-year-old gentleman who was admitted over the weekend secondary to feeling lightheaded, dizzy and palpitations. He was found to have ventricular tachycardia, received lidocaine in the Emergency Room and admitted to the hospital. During the course of his hospital stay, he had a cardiac catheterization that was only significant for moderate disease. He was found to have significant cardiomyopathy by an echocardiogram and he was being diuresed and optimized and initiated on heart failure medicines. While in the hospital on telemetry, he continued to have episodes of VT and nonsustained VT. He was started on amiodarone. Electrophysiology was consulted due to the recurrent ventricular arrhythmias. I am trying to discuss with the patient and get a history. He continued to ramble on about multiple other things, so it was difficult to redirect him. He tells me that he went to bed the night prior to this admission feeling fine and then woke up with sudden onset of palpitations, lightheadedness and dizziness. He tells me that this occurred for a few hours before he finally got a friend to take him to the hospital. He denies any syncope. He does admit to progressive shortness of breath and dyspnea on exertion in retrospect over the past few months as well as some orthopnea and lower extremity swelling. The patient denies any acute chest pains. The patient, as per medical chart, has been recently using methamphetamines; however, when I asked him about illicit drugs, he only confess to me of having marijuana. PAST MEDICAL HISTORY: He was not on any medications when he came in here, he did not really follow with any physician, so there is none. PAST SURGICAL HISTORY: None. SOCIAL HISTORY: He smokes tobacco. He did not admit to me about methamphetamines; however, in the chart, he has used it recently and he did admit to marijuana. He says he stopped drinking a few years back. ALLERGIES: NKDA. MEDICINES: Current hospital medicines are Zantac 150 mg, Cozaar 25 mg, aspirin 81 mg, Lipitor 40 mg, Aldactone 12.5 mg, amiodarone 200 mg 3 times a day and Toprol 25 mg. FAMILY HISTORY: The patient denies any sudden cardiac or premature coronary artery disease. REVIEW OF SYSTEMS: A complete 10 system review was performed with all others being negative. See HPI for those that are positive. PHYSICAL EXAMINATION: VITAL SIGNS: Blood pressure 127/76, heart rate 57, respirations 18, oxygen saturations 98% on room air, temperature 36.8. GENERAL: He is awake, alert and oriented x3, he is sitting up in the bed. His LifeVest was just placed on HEENT: Normocephalic, atraumatic. Extraocular motions intact. Sclerae is nonicteric. Mucous membranes moist. NECK: Supple, no JVD, no carotid bruits appreciated. CARDIOVASCULAR: Normal S1, S2, regular rate and rhythm. Positive systolic murmur. PULMONARY: Clear to auscultation bilaterally. No wheezes, rales or rhonchi. ABDOMEN: Positive bowel sounds, soft, nontender, nondistended. EXTREMITIES: No clubbing or cyanosis bilateral fingers. No edema of the lower extremities. Peripheral pulses intact. NEUROLOGIC: Grossly intact. SKIN: Grossly intact. PERTINENT TESTING: The EMS EKG on 04/15/2019 showed ventricular tachycardia at 150 beats per minute with a superior axis and a right bundle branch pattern. An EKG on admission 04/15/2019 sinus rhythm, 96 beats per minute with a QTC of 449 milliseconds. EKG 04/16/2019 sinus rhythm, 68 beats per minute. QTC 452 milliseconds. EKG 04/17/2019 sinus bradycardia at 49 beats per minute with the EKG with prolonged QT of 556 milliseconds. EKG 04/18/2019, sinus bradycardia, 53 beats per minute with a QTC of 525 milliseconds. EKG 04/19/2019, sinus bradycardia at 58 beats per minute, PVCs, nonspecific T-wave, prolonged QT as well as positive P-wave and on 04/20/2019, sinus bradycardia at 56 beats per minute, septal SC and a QTC is prolonged at 46 milliseconds. The echocardiogram with an ejection fraction of 20-25%, globally reduced with the right ventricular is moderately dilated and function is moderately reduced. There is moderate mitral regurgitation. Mild to moderate tricuspid regurgitation. The right pulmonary artery pressure is 45 mmHg with the right atrial pressure being 15 mmHg and the IVC being dilated. A cardiac catheterization showed nonobstructive mild to moderate LAD disease by FFR of 0.9. The LAD was 20% proximal, 50% mid, diag 1 ostial 100%, which looked like a MEASUREMENT SUPERINTENDENT, diag 2 ostial was 20%. Circumflex was mid 10%, right coronary artery was nondominant and is okay and the ramus intermediate was a mid 30%. CBC: WBC is 8.6, hemoglobin 14, hematocrit 41, platelets 198. BMP: Sodium 142, potassium 3.9, chloride 108, carbon dioxide 28, BUN 13, creatinine 1.02, glucose 85, calcium 8, magnesium 2.1. On admission LFTs: AST 60, ALT 85, alkaline phosphatase 112 Lipid profile, triglycerides 76, total cholesterol 92, LDL 48, HDL 29. TSH 3.2 IMPRESSION: 1. Ventricular tachycardia, not terribly fast on the rate of 150 beats per minute with a superior axis and right bundle branch block. 2. Nonischemic cardiomyopathy, ejection fraction 20-25%, unclear how long, the duration is probably pretty long and etiology is most likely secondary to illegal substance abuse. 3. Sinus bradycardia. 4. Prolonged QT. 5. Mild to moderate nonobstructive coronary artery disease. 6. Acute on chronic systolic heart failure, [place] [employer] class 2-3. 7. Noncompliance. 8. Illicit drug use with recent methamphetamine use. 9. Moderate mitral regurgitation, mild to moderate tricuspid regurgitation, and right ventricular dilatation and hypokinesis. PLAN: I agree that the patient should have a LifeVest upon discharge. He should be on antiarrhythmics for the time being. Amiodarone is unacceptable at this juncture. Continue to optimize his heart failure medications for his nonischemic cardiomyopathy. Would repeat an echo in 3 months and if ejection fraction is still low, may need to consider a defibrillator, discussed and emphasized with the patient the importance of medical compliance as well as dietary compliance with low sodium and more importantly of abstinence of any alcohol and illegal substances. Otherwise, he will probably have a heart attack and a high risk of . The patient seemed to express an understanding of this, but again he was pretty agitated to want to be discharged. The patient should follow up with general cardiology and then after repeat echo once he is optimized on heart failure medicines, could consider a defibrillator; however, it is a high risk right now for possible infection, especially given the use of his illegal substances, so further talks would have to be discussed more with the patient about his compliances from a substance abuse. Would repeat LFTs since they were elevated on admission and he is on amiodarone now. VENUS
== END 2019-04-20 18:19 | disposition left against medical advice (07) | DRG 287 ==
LOC: ED 15:46 → SUATTDRO 17:51 → 1E 17:51 → 2S 04-17 17:37
DX: I47.2 Ventricular tachycardia; I25.10 Atherosclerotic heart disease of native coronary artery without angina pectoris; Z88.8 Allergy status to other drugs, medicaments and biological substances; F15.10 Other stimulant abuse, uncomplicated